=== PATIENT | male | born 1970 | race Caucasian/White ===

== ENCOUNTER 2020-07-28 15:19 | Emergency (ER) | payer OTHER, SELFPAY ==
[2020-07-28 15:21] VITALS: BP 140/96; PULSE 89; RESP 16; TEMP 36.6; O2SAT 98; BMI 25.9
--- NOTE | 2020-07-28 15:30 | HMH.EDGENADL ---
ED Disposition Clinical Impression: Traumatic hematoma of groin Qualifiers: Encounter type: initial encounter Qualified Code(s): S30.1XXA - Contusion of abdominal wall, initial encounter Disposition: Home, Self-Care Condition on Discharge: Good Instructions: DI for Hematoma (Bruise) Additional Instructions: Ice 20 minutes 4-5 times a day for 2 days. [place] as needed for pain. Return to the emergency department if intolerable pain, severe swelling, difficulty urinating. Additional instructions for CONTROLLED SUBSTANCES: You have been prescribed a medication that is a controlled substance. Controlled substances include pain medications known as opiates and sedative nerve medications known as benzodiazepines. Tramadol, fioricet, and gabapentin are also controlled substances. Some common opiates include: Codeine (such as Tylenol #3) Hydrocodone (Vicodin, Lortab, Lorcet, [place]) Oxycodone (Percocet, Percodan, Oxycodone, Oxy IR) Some common benzodiazepines include: Diazepam (Valium) Lorazepam (Ativan) Alprazolam (Xanax) Clonazepam (Klonopin) Oxazepam (Serax) All of these controlled substances are highly addictive and frequently abused. Misuse can and frequently does lead to addiction as well as overdose and . Medication should be stored in a locked cabinet or other secure storage unit. Do not store the medication in a motor vehicle. Short term supplies, 3 days or less, are prescribed because of the highly addictive nature of the medication. Any of the controlled substance medication NOT taken should be disposed of properly and NOT SAVED. The recommended method of disposing of unused medications is: Place the medicines in a sealable plastic bag. If the medicine is a solid, crush it or add water to dissolve it. Add something undesirable (cat litter, coffee grounds, etc.) Dispose of sealed bag in household trash Do not flush or pour unused medicines down a sink or drain. Controlled substances should not be shared, given away or sold. Because of the addictive nature and frequent abuse, these medications are sometimes stolen. These medications should be kept in a safe place where they cannot be stolen. Do not keep them in your car or purse. Lost or stolen prescriptions for controlled substances WILL NOT BE REFILLED in this emergency department, regardless of whether a police report was filed. Prescriptions: Hydrocod/Acet 5/325 mg [[place] 5/325mg tablet] 1 tab PO Q6HP PRN #10 tab PRN Reason: Pain Transmission Status: Sent to [id number] Referrals: PCP,No [Primary Care Provider] - - Critical Care Critical Care Time: No Attestation: On 07/28/20, the high probability of a clinically significant, sudden or life threatening deterioration of the following system(s) required my full and direct attention, intervention and personal management. The time I documented below is in addition to time spent performing reported procedures but includes the following listed in this critical care notation. Medical Decision Making - Robert Inquiry Pt receiving controlled substance: Yes Robert was queried for this patient: Yes Risks and benefits of using a controlled substance: were discussed with pt by me Vital Signs: 07/28/20 15:21 07/28/20 15:42 07/28/20 16:21 Temperature 98 F Temperature Source Oral Pulse Rate [Radial] 89 96 H 90 Respiratory Rate 16 Blood Pressure [Right Arm] 140/96 H 138/88 164/95 H Blood Pressure Mean [Right Arm] 110 104 118 Blood Pressure Source [Right Arm] Automatic Cuff Automatic Cuff Blood Pressure Position [Right Arm] Sitting Sitting Sitting 02 Sat by Pulse Oximetry 98 96 99 Oxygen Delivery Method Room Air Room Air Room Air 07/28/20 16:30 Temperature Temperature Source Pulse Rate [Radial] 88 Respiratory Rate 18 Blood Pressure [Right Arm] 164/95 H Blood Pressure Mean [Right Arm] 118 Blood Pressure Source [Right Arm] Blood Pressure Position [Right Arm]
--- NOTE | 2020-07-28 15:41 | CT_ITS ---
PROCEDURE: CT ABDOMEN PELVIS W CON CLINICAL INDICATION: injury Blunt trauma with injury and pain, contusion/abrasion or hematoma following injury COMPARISON: No exams were available for comparison TECHNIQUE: IV Contrast: 75ML Isovue 370 Oral Contrast None Axial images obtained with sagittal and coronal reformats. All CT scans at the facility use one or more dose reduction, viz: automated exposure control, ma/kV adjustment per patient size (including targeted exams where dose is matched to indication, i.e. head), or iterative reconstruction technique. FINDINGS: There is minimal thickening of the pericardium anteriorly. Liver, spleen, adrenal glands, and pancreas have an unremarkable appearance. There parapelvic renal cyst. No renal calculi or ureteral calculi parent. No evidence of appendicitis. No intestinal obstruction or free air. There is colonic diverticulosis. No evidence of diverticulitis. Right inguinal soft tissue injury is present with contusion and hemorrhage in the subcutaneous tissues of the right groin and within the right inguinal canal. Edematous changes extend into the anterior medial aspect of the right hip. Possible injury to the right adductors. There are bilateral hydroceles. Curvilinear calcification is present inferior to the left pubic bone there are mild osteoarthritic changes of the hips with sub articular cystic changes. IMPRESSION: 1. Soft tissue injury in the right groin with edema and hemorrhage in the subcutaneous tissues extending into the right inguinal canal and possible contusion or strain of the adductor muscle group in the proximal medial thigh. 2. Small to moderate bilateral hydroceles. Consider ultrasound for testicular evaluation of clinically warranted. Dictated by: Drew Kumar MD 07/29/2020 08:40 Drew Kumar MD in [place] 07/29/2020 08:40
--- NOTE | 2020-07-28 15:41 | XR_ITS ---
PROCEDURE: XR PELVIS 1-2V CLINICAL INDICATION: injury Pain COMPARISON: No exams were available for comparison TECHNIQUE: XR Pelvis AP View FINDINGS: No fracture or dislocation is evident. Mild degenerative changes of the hips. No lytic or blastic change. IMPRESSION: No acute findings. Dictated by: Drew Kumar MD 07/29/2020 07:36 Drew Kumar MD in [place] 07/29/2020 07:36
[2020-07-28 15:42] VITALS: BP 138/88; PULSE 96; O2SAT 96
--- NOTE | 2020-07-28 15:42 | XR_ITS ---
PROCEDURE: XR CHEST 2V CLINICAL HISTORY: injury Pain COMPARISON: No exams were available for comparison FINDINGS: The cardiomediastinal silhouette and pulmonary vascularity are within normal limits. The lungs are clear without infiltrates, suspicious nodules, or pleural effusions. There old left-sided rib fractures and postsurgical changes of the left scapula. IMPRESSION: No acute findings. Dictated by: Drew Kumar MD 07/29/2020 07:35 Drew Kumar MD in [place] 07/29/2020 07:35
--- NOTE | 2020-07-28 15:49 | XR_ITS ---
PROCEDURE: XR ELBOW LT MIN 3V CLINICAL INDICATION: injury COMPARISON: No exams were available for comparison FINDINGS: No acute fracture or dislocation. No lytic or blastic change. There is normal mineralization. The joint spaces are well-preserved. No significant degenerative/arthritic changes. No erosive changes evident. Other findings:Pain there is a faint calcific density at the medial epicondylar region within the soft tissues and may represent sequela from an old injury. IMPRESSION: No acute findings. Dictated by: Drew Kumar MD 07/29/2020 07:33 Drew Kumar MD in [place] 07/29/2020 07:33
[2020-07-28 16:10] LABS: Basophils % 0.2 % (0.1-2.0); Eosinophils # 0.1 K/mm3 (0.0-0.4); Eosinophils % 0.4 % (0.1-12.0); Hematocrit 40.8 % (42.0-52.0); Hemoglobin 13.9 g/dL (14.1-18.0); Lymphocytes # 1.7 K/mm3 (0.7-4.5); Lymphocytes % 13.6 % (10-50); Mean Corpuscular Hemoglobin 30.2 pg (27.0-31.2); Mean Corpuscular Volume 88.7 fl (80-94); Mean Platelet Volume 7.5 fl (7.4-10.4); Monocytes # 0.7 K/mm3 (0.1-1.0); Monocytes % 5.6 % (1.7-9.3); Neutrophils # 10.1 K/mm3 (1.8-7.8); Neutrophils % 80.1 % (37.0-80.0); Platelet Count 299 K/mm3 (142-424); Red Blood Count 4.59 M/mm3 (4.60-6.20); Red Cell Distribution Width 13.8 % (11.5-17.5); White Blood Count 12.6 K/mm3 (4.8-10.8)
[2020-07-28 16:13] LABS: Chloride 103 mmol/L (98-107); Sodium 137 mmol/L (136-145)
[2020-07-28 16:14] LABS: Potassium 4.5 mmoL/L (3.5-5.1)
[2020-07-28 16:16] LABS: Blood Urea Nitrogen 18 mg/dl (9-20); Creatinine Clearance Estimated 85 mL/min (50-200); Estimated Glomerular Filt Rate 65 ml/min (>60); GFR (African American) 78 ML/MIN (>60)
[2020-07-28 16:17] LABS: Anion Gap 11.5 mEq/L (5-15); Calcium 9.3 mg/dl (8.4-10.2); Carbon Dioxide 27 mmol/L (22.0-30.0); Glucose 83 mg/dl (74-100)
[2020-07-28 16:21] VITALS: BP 164/95; PULSE 90; O2SAT 99
--- NOTE | 2020-07-28 16:24 | PC.NURSE ---
Pt returned from rad.
[2020-07-28 16:30] VITALS: BP 164/95; PULSE 88; RESP 18; O2SAT 98
[2020-07-28 17:00] VITALS: BP 152/85; PULSE 77; O2SAT 96
[2020-07-28 17:12] VITALS: BP 152/85; PULSE 88; RESP 18; TEMP 36.8; O2SAT 98
== END 2020-07-28 17:09 | disposition home or self-care (01) ==
PROVIDERS: Emergency Provider Emergency Medicine
DX: S30.1XXA Contusion of abdominal wall, initial encounter (principal); S50.02XA Contusion of left elbow, initial encounter; V80.010A Animal-rider injured by fall from or being thrown from horse in noncollision accident, initial encounter; Y92.71 Barn as the place of occurrence of the external cause; I10 Essential (primary) hypertension
CPT/HCPCS: 71046; 72170; 73080; 74177; 80048; 85025; 99283; Q9967

== ENCOUNTER 2020-07-30 15:59 | Emergency (ER) | payer OTHER, SELFPAY ==
[2020-07-30 16:01] VITALS: BP 141/91; PULSE 105; RESP 20; TEMP 37.2; O2SAT 96; BMI 25.9
--- NOTE | 2020-07-30 16:58 | PC.NURSE ---
pt refused ultrasound
--- NOTE | 2020-07-30 17:03 | HMH.EDGENADL ---
ED Disposition Clinical Impression: Traumatic hematoma of groin Qualifiers: Encounter type: subsequent encounter Qualified Code(s): S30.1XXD - Contusion of abdominal wall, subsequent encounter Disposition: Home, Self-Care Condition on Discharge: Good Instructions: DI for Acute Pain -- Adult Prescriptions: Oxycodone HCl/Acetaminophen [Percocet 7.5/325mg tablet] 1 tab PO QID PRN #10 tab PRN Reason: Muscle Pain Transmission Status: Sent to [id number] Referrals: PCP,No [Primary Care Provider] - - Critical Care Critical Care Time: No Attestation: On 07/30/20, the high probability of a clinically significant, sudden or life threatening deterioration of the following system(s) required my full and direct attention, intervention and personal management. The time I documented below is in addition to time spent performing reported procedures but includes the following listed in this critical care notation. Medical Decision Making - Medical Records Medical records reviewed: Yes: I reviewed the patient's medical records. - Robert Inquiry Pt receiving controlled substance: Yes Robert was queried for this patient: Yes Reference #:: [id number] Risks and benefits of using a controlled substance: were discussed with pt by me Vital Signs: 07/30/20 16:01 Temperature 98.9 F Temperature Source Oral Pulse Rate [Left Radial] 105 H Respiratory Rate 20 Blood Pressure [Right Arm] 141/91 H Blood Pressure Mean [Right Arm] 107 Blood Pressure Source [Right Arm] Automatic Cuff Blood Pressure Position [Right Arm] Sitting 02 Sat by Pulse Oximetry 96 Oxygen Delivery Method Room Air Orders (Tests/Meds): ED MEDICATIONS Discontinued Medications Generic Name Dose Route Start Last Admin Trade Name Freq PRN Reason Stop Dose Admin Hydrocodone Bitart/Acetaminophen 1 tab 07/30/20 16:43 07/30/20 16:52 Hydrocodone 10mg/Apap 325mg Tab PO 07/30/20 16:44 1 tab ONCE ONE Administration ORDERS Category Date Time Status US Testicular Stat Ultrasound 07/30/20 16:43 Ordered Medical Decision Narrative: 49-year-old male presenting with some right groin pain. The patient has significant strain of his right inguinal area. However the patient continues to ride horses. I did explain to the patient that he needs to rest his injury. He will be given additional short course of analgesics. He is to ice and elevate the injury. I would like to obtain scrotal ultrasound, however the patient is declining at this time. He states that he just wants to try and rest for the next few days. He will follow up with his PCP in 48 hours. Given strict return precautions. Verbalized understanding. General Adult HPI - General Chief complaint: PAIN Stated complaint: WC 07/28 horse step on back Time Seen by Provider: 07/30/20 16:05 Mode of Arrival: Ambulatory Limitations: No Limitations Description of Symptoms (Recalled from ER Triage Doc. by RN): Pt states that he was seen here Thursday after a horse kicked him. States he got pain medicine but it is not strong enough for his pain control - History of Present Illness HPI narrative: 49-year-old male presented to the emergency department with some groin pain. Patient was recently seen after a trauma over the weekend. The patient had a horse fall backwards onto him. He was pulled by the left leg in the saddle until he was able to free himself. The patient did have extensive swelling and bleeding in the area causing some pain. He was discharged with some analgesics and feeling better. However today the patient continues to endorse some pain in the area. He states that the pain medicine is not working. However the patient also admits that he has continued to ride horses today. He denies any new injuries. He is not having difficulty urinating or hematuria. Denies abdominal pain or vomiting. No chest pain or shortness of breath. No headache or change in vision. No fo
[2020-07-30 17:29] VITALS: BP 137/78; PULSE 78; RESP 16; TEMP 36.6; O2SAT 98
== END 2020-07-30 17:31 | disposition home or self-care (01) ==
PROVIDERS: Emergency Provider Emergency Medicine
DX: S30.1XXA Contusion of abdominal wall, initial encounter (principal); V80.010A Animal-rider injured by fall from or being thrown from horse in noncollision accident, initial encounter; Y92.89 Other specified places as the place of occurrence of the external cause
CPT/HCPCS: 99281

== ENCOUNTER 2021-02-25 15:48 | Emergency (ER) | payer SELFPAY ==
[2021-02-25 15:49] VITALS: BP 154/99; PULSE 92; RESP 16; TEMP 37.6; O2SAT 100; BMI 28.0
--- NOTE | 2021-02-25 16:25 | XR_ITS ---
PROCEDURE INFORMATION: Exam: XR Chest Exam date and time: 02/25/2021 4:25 PM Age: 50 years old Clinical indication: Pain; Chest pressure and on breathing; Additional info: SOA, cough, painful inspiration TECHNIQUE: Imaging protocol: XR of the chest. Views: 2 views. COMPARISON: CR XR CHEST 2V 07/28/2020 3:55 PM FINDINGS: Lungs: Faint left basilar opacity compatible with pneumonia Pleural spaces: Unremarkable. No pleural effusion. No pneumothorax. Heart/Mediastinum: Unremarkable. No cardiomegaly. Bones/joints: Unremarkable. IMPRESSION: Faint left basilar opacity compatible with pneumonia
[2021-02-25 16:31] VITALS: BP 136/96; PULSE 94; O2SAT 98
[2021-02-25 16:37] LABS: Influenza A, PCR Not Detected (NotDetected); Influenza B, PCR Not Detected (NotDetected)
[2021-02-25 16:45] LABS: Basophils % 0.5 % (0.1-2.0); Eosinophils % 0.1 % (0.1-12.0); Hematocrit 43.6 % (42.0-52.0); Hemoglobin 14.7 g/dL (14.1-18.0); Lymphocytes # 0.6 K/mm3 (0.7-4.5); Lymphocytes % 13.2 % (10-50); Mean Corpuscular HGB Conc 33.7 g/dL (31.8-35.4); Mean Corpuscular Hemoglobin 30.7 pg (27.0-31.2); Mean Corpuscular Volume 91.1 fl (80-94); Monocytes # 0.1 K/mm3 (0.1-1.0); Monocytes % 3.1 % (1.7-9.3); Neutrophils # 3.7 K/mm3 (1.8-7.8); Neutrophils % 82.9 % (37.0-80.0); Platelet Count 198 K/mm3 (142-424); Red Blood Count 4.79 M/mm3 (4.60-6.20); Red Cell Distribution Width 13.1 % (11.5-17.5); White Blood Count 4.4 K/mm3 (4.8-10.8)
[2021-02-25 16:46] LABS: Alanine Aminotransferase 103 U/L (12-78); Albumin Level 4.2 g/dl (3.5-5.0); Albumin/Globulin Ratio 1.3 (1.1-1.8); Alkaline Phosphatase 86 U/L (38-126); Anion Gap 12.1 mEq/L (5-15); Aspartate Amino Transferase 84 U/L (17-59); Bilirubin,Total 0.3 mg/dl (0.2-1.3); Blood Urea Nitrogen 13 mg/dl (9-20); Calcium 8.8 mg/dl (8.4-10.2); Carbon Dioxide 27 mmol/L (22.0-30.0); Chloride 101 mmol/L (98-107); Creatinine Clearance Estimated 109 mL/min (50-200); Estimated Glomerular Filt Rate 79 ml/min (>60); GFR (African American) 96 ML/MIN (>60); Globulin 3.2 g/dL (1.3-3.2); Glucose 80 mg/dl (74-100); Potassium 4.1 mmoL/L (3.5-5.1); Sodium 136 mmol/L (136-145); Total Protein,Serum 7.4 g/dl (6.3-8.2)
[2021-02-25 17:00] VITALS: BP 143/93; PULSE 91; O2SAT 99
[2021-02-25 17:19] LABS: Coronavirus 19, PCR Detected (NotDetected)
--- NOTE | 2021-02-25 17:36 | HMH.EDGENADL ---
ED Disposition Clinical Impression: COVID-19 Disposition: Home, Self-Care Condition on Discharge: Good Additional Instructions: Self isolate. Tylenol/Motrin as needed for aches and pains. Continue prescribed medications as directed. Return for shortness of breath, chest pain Referrals: Provider,Referral, [Primary Care Provider] - 3 days Time of Disposition: 17:39 - Critical Care Critical Care Time: No Attestation: On 02/25/21, the high probability of a clinically significant, sudden or life threatening deterioration of the following system(s) required my full and direct attention, intervention and personal management. The time I documented below is in addition to time spent performing reported procedures but includes the following listed in this critical care notation. Medical Decision Making - Medical Records Medical records reviewed: Yes: I reviewed the patient's medical records. - Robert Inquiry Pt receiving controlled substance: No Vital Signs: 02/25/21 15:49 Temperature 99.6 F Temperature Source Oral Pulse Rate [Right Radial] 92 H Respiratory Rate 16 Blood Pressure [Right Arm] 154/99 H Blood Pressure Mean [Right Arm] 117 Blood Pressure Source [Right Arm] Automatic Cuff Blood Pressure Position [Right Arm] Sitting 02 Sat by Pulse Oximetry 100 Oxygen Delivery Method Room Air - Lab Data Lab results reviewed: Yes: I reviewed the patient's lab results. Lab Results 02/25/21 16:20: WBC 4.4 L, RBC 4.79, Hgb 14.7, Hct 43.6, MCV 91.1, MCH 30.7, MCHC 33.7, RDW 13.1, Plt Count 198, MPV 8.0, Neut % (Auto) 82.9 H, Lymph % (Auto) 13.2, Williams % (Auto) 3.1, Eos % (Auto) 0.1, Baso % (Auto) 0.5, Neut # (Auto) 3.7, Lymph # (Auto) 0.6 L, Williams # (Auto) 0.1, Eos # (Auto) 0.0, Baso # (Auto) 0.0 02/25/21 16:20: Sodium 136, Potassium 4.1, Chloride 101, Carbon Dioxide 27, Anion Gap 12.1, BUN 13, Creatinine 1.00, Estimated Creat Clear 109, Estimated GFR 79, Est GFR ( Amer) 96, Glucose 80, Calcium 8.8, Total Bilirubin 0.3, AST 84 H, ALT 103 H, Alkaline Phosphatase 86, Total Protein 7.4, Albumin 4.2, Globulin 3.2, Albumin/Globulin Ratio 1.3 02/25/21 16:20: SARS-CoV-2 (PCR) Detected A, Influenza A Untype (PCR) Not detected, Influenza Type B (PCR) Not detected Result diagrams: 02/25/21 16:20 02/25/21 16:20 - Radiology Data #1 Image(s): Chest Image Reviewed: Yes I reviewed the patient's radiology results Preliminary Findings: Abnormal Possible early Covid pneumonia Medical Decision Narrative: 50yo M evaluated for cough and shortness of breath. Patient no acute distress upon initial presentation to emergency department. He ambulates without difficulty and speaks in full sentences. He is in quite good spirits. Routine work-up is initiated and the patient is Covid positive. Chest x-ray concerning for possible early Covid pneumonia. White blood cell count is 4.4. His O2 saturation is 99% on room air. Patient is appropriate stable for discharge home. Instructed to self isolate. General Adult HPI - General Chief complaint: Shortness of Breath/Dyspnea Stated complaint: breathing issue Time Seen by Provider: 02/25/21 17:36 Mode of Arrival: Ambulatory Limitations: No Limitations Description of Symptoms (Recalled from ER Triage Doc. by RN): Pt c/o SOA and productive cough for a few days . Pt states that its painful to take a deep breath. - History of Present Illness HPI narrative: 50yo M presents the emergency department for a cough and sensation of shortness of breath. Symptoms been ongoing for about 7 days. Reports fever prior to that but no fever since. States he has lost his sense of smell. He also reports loose stools. Denies any chest pain. Patient reports taking his home medication as directed. Patient does not smoke. No known sick exposures. - Related Data Home Medications Medication Instructions Recorded Confirmed hydrOXYzine HCL [Hydroxyzine HCl] 25 mg PO TID 07/28/20 07/28/20 l
[2021-02-25 17:40] VITALS: BP 130/93; PULSE 91; RESP 18; TEMP 37.6; O2SAT 97
[2021-02-25 17:42] VITALS: BP 130/93; PULSE 91; O2SAT 97
== END 2021-02-25 17:45 | disposition home or self-care (01) ==
PROVIDERS: Emergency Provider Family Medicine
DX: U07.1 COVID-19 (principal)
CPT/HCPCS: 71046; 80053; 85025; 99283; C9803; U0003; U0005

== ENCOUNTER → 2021-09-17 16:00 | Outpatient (CLI) | payer OTHER, SELFPAY ==
[2021-09-17 20:16] LABS: Erythrocyte Sedimentation Rate 6 mm/hr (0-15)
[2021-09-19 08:21] LABS: Testosterone,Total 127 ng/dL (264-916)
== END ==
PROVIDERS: Visit Provider Emergency Medicine
DX: S30.1XXA Contusion of abdominal wall, initial encounter (principal)
CPT/HCPCS: 84403; 85651; 86140

== ENCOUNTER 2021-10-17 13:38 | Emergency (ER) | payer OTHER, SELFPAY ==
--- NOTE | 2021-10-17 13:53 | XR_ITS ---
FINAL REPORT CLINICAL HISTORY: cough, weakness COMPARISON: February 25, 2021 FINDINGS: PA and lateral views of the chest were obtained. The cardiac and mediastinal silhouettes are within normal limits. There is subtle peripheral opacity in the right lung. There is no pleural effusion or pneumothorax. There is an old left scapular fracture. There are old left rib fractures. IMPRESSION: Subtle peripheral opacity in the right lung. Pneumonia cannot be excluded. Reviewed, Interpreted and Dictated by Alexa Gallegos MD Transcribed by Dread Scott Authenticated by Alexa Gallegos MD on 10/17/2021 02:53:50 PM [facility]
[2021-10-17 14:00] VITALS: BP 144/91; PULSE 99; RESP 18; TEMP 36.6; O2SAT 97; BMI 27.3
--- NOTE | 2021-10-17 14:15 | HMH.EDUTC ---
[facility] [place] Disposition Clinical Impression: Sinusitis Qualifiers: Sinusitis location: unspecified location Chronicity: acute Recurrence: non-recurrent Qualified Code(s): J01.90 - Acute sinusitis, unspecified Fatigue Qualifiers: Fatigue type: unspecified Qualified Code(s): R53.83 - Other fatigue Disposition: Home, Self-Care Condition on Discharge: Good Instructions: DI for Sinusitis, DI for Fatigue Additional Instructions: Drink plenty of fluids. Take tylenol or ibuprofen for pain or fever. Take the medications as directed. Follow up with your regular doctor. GO TO THE ER FOR ANY WORSENING SYMPTOMS Don't start the oral steroids until tomorrow, since you had the shot here today. Prescriptions: methylPREDNISolone [Medrol] 4 mg PO DIRECTED 6 Days #21 packet Transmission Status: Received by [facility] Azithromycin [Z-Michael 250mg Tab*] 250 mg PO UD DOSE PK #6 tab Transmission Status: Received by [facility] Referrals: Santino Cruz MD [Primary Care Provider] - Time of Disposition: 14:52 Medical Decision Making - Medical Records Medical records reviewed: No: I reviewed the patient's medical records. - Robert Inquiry Pt receiving controlled substance: No Vital Signs: 10/17/21 14:00 10/17/21 14:55 Temperature 97.9 F 97.9 F Temperature Source Oral Pulse Rate 99 H Pulse Rate [Left Radial] 99 H Respiratory Rate 18 18 Blood Pressure 144/91 H Blood Pressure [Right Arm] 144/91 H Blood Pressure Mean [Right Arm] 108 02 Sat by Pulse Oximetry 97 Orders (Tests/Meds): ED MEDICATIONS Discontinued Medications Generic Name Dose Route Start Last Admin Trade Name Pola PRN Reason Stop Dose Admin Ceftriaxone Sodium 1 gm 10/17/21 14:32 10/17/21 14:48 Ceftriaxone 1gm Vial IM 10/17/21 14:33 1 gm ONCE ONE Administration Lidocaine HCl 0 ml 10/17/21 14:32 10/17/21 14:48 Lidocaine 1% 5ml Pf Vial IM 10/17/21 14:33 2 ml ONCE ONE Administration Methylprednisolone Sodium Succinate 125 mg 10/17/21 14:32 10/17/21 14:48 Methylprednisolone Sod Succ 125mg Vial IM 10/17/21 14:33 125 mg ONCE ONE Administration ORDERS Category Date Time Status Covid-19 Nasal PCR ([facility]) Routine Lab 10/17/21 13:51 Received Upper Respiratory Panel, PCR Stat Lab 10/17/21 13:51 Received - Radiology Data #1 Image(s): Chest Image Reviewed: Yes I reviewed the patient's radiology image, Yes I have reviewed radiologist's interpretation Preliminary Findings: Abnormal FINAL REPORT CLINICAL HISTORY: cough, weakness COMPARISON: February 25, 2021 FINDINGS: PA and lateral views of the chest were obtained. The cardiac and mediastinal silhouettes are within normal limits. There is subtle peripheral opacity in the right lung. There is no pleural effusion or pneumothorax. There is an old left scapular fracture. There are old left rib fractures. IMPRESSION: Subtle peripheral opacity in the right lung. Pneumonia cannot be excluded. Reviewed, Interpreted and Dictated by Alexa Gallegos MD Transcribed by Dread Scott Authenticated by Alexa Gallegos MD on 10/17/2021 02:53:[address] [facility] HPI - General Stated complaint: sweats, weakness Time Seen by Provider: 10/17/21 14:00 Mode of Arrival: Ambulatory Source of Information: Patient Limitations: No Limitations Description of Symptoms (Recalled from Triage Doc. by RN): pt here for weakness, cold sweats, heat bothering him. pt also c/o phlegm that he can not get rid of HEENT Symptoms (Recalled from RN notes): No Resp Symptoms (Recalled from RN notes): Yes Skin Symptoms (Recalled from RN notes): No MS Symptoms (Recalled from RN notes): No Functional Status (Recalled from RN notes): wnl - History of Present Illness Provider Complaint: He states that he has been having night sweats, low grade fever at times, feeling bad and a cough. - Related Data Home Medications Medic
[2021-10-17 14:40] LABS: Adenovirus,PCR Not Detected (NotDetected); Bordetella Pertussis Not Detected (NotDetected); Chlamydophila Pneumoniae, PCR Not Detected (NotDetected); Coronavirus 229E Not Detected (NotDetected); Coronavirus NL63 Not Detected (NotDetected); Coronavirus OC43 Not Detected (NotDetected); Coronovirus HKU1,PCR Not Detected (NotDetected); Human Metapneumovirus Not Detected (NotDetected); Influenza A, PCR Not Detected (NotDetected); Influenza AH1, 2009 Not Detected (NotDetected); Influenza AH1, PCR Not Detected (NotDetected); Influenza AH3,PCR Not Detected (NotDetected); Influenza B, PCR Not Detected (NotDetected); Mycoplasma Pneumoniae, PCR Not Detected (NotDetected); Parainfluenza 1, PCR Not Detected (NotDetected); Parainfluenza 2, PCR Not Detected (NotDetected); Parainfluenza 3, PCR Not Detected (NotDetected); Parainfluenza 4, PCR Not Detected (NotDetected); Respiratory Syncytial Virus Not Detected (NotDetected); Rhinovirus/Enterovirus Not Detected (NotDetected)
[2021-10-17 14:55] VITALS: BP 144/91; PULSE 99; RESP 18; TEMP 36.6
== END 2021-10-17 14:58 | disposition home or self-care (01) ==
PROVIDERS: Emergency Provider Nurse Practitioner Family; PCP Emergency Medicine
DX: J01.90 Acute sinusitis, unspecified (principal); R53.82 Chronic fatigue, unspecified; R53.1 Weakness; R61 Generalized hyperhidrosis; R50.9 Fever, unspecified; I10 Essential (primary) hypertension; Z20.822 Contact with and (suspected) exposure to COVID-19; Z79.52 Long term (current) use of systemic steroids; Z79.899 Other long term (current) drug therapy
CPT/HCPCS: 71046; 87486; 87581; 87632; 87798; 96372; 99213; C9803; G0463; J0696; U0003; U0005

== ENCOUNTER 2021-11-18 17:09 | Emergency (ER) | payer OTHER, SELFPAY ==
[2021-11-18 17:57] VITALS: BP 142/92; PULSE 94; RESP 18; TEMP 37.1; O2SAT 97; BMI 27.0
--- NOTE | 2021-11-18 17:57 | HMH.EDUTC ---
[facility] [place] Clinical Impression: Bronchitis Sinusitis Qualifiers: Sinusitis location: frontal Chronicity: acute Recurrence: non-recurrent Qualified Code(s): J01.10 - Acute frontal sinusitis, unspecified Fatigue Qualifiers: Fatigue type: unspecified Qualified Code(s): R53.83 - Other fatigue Disposition: Home, Self-Care Condition on Discharge: Good Instructions: DI for Sinusitis, DI for Acute Bronchitis Additional Instructions: Drink plenty of fluids. Take tylenol or ibuprofen for pain or fever. Take the medications as directed. Follow up with your regular doctor. GO TO THE ER FOR ANY WORSENING SYMPTOMS Don't start the oral steroids until tomorrow, since you had the shot here today. Prescriptions: Fluticasone Propionate [Flonase 50mcg nasal spray 16gm] 1 spr NS DAILY 30 Days #16 gm Transmission Status: Received by [facility] methylPREDNISolone [Medrol] 4 mg PO DIRECTED 6 Days #21 packet Transmission Status: Received by [facility] Cetirizine HCl [Zyrtec] 10 mg PO DAILY 30 Days #30 cap Transmission Status: Received by [facility] Referrals: Santino Cruz MD [Primary Care Provider] - Time of Disposition: 19:14 Medical Decision Making - Medical Records Medical records reviewed: No: I reviewed the patient's medical records. - Robert Inquiry Pt receiving controlled substance: No Vital Signs: 11/18/21 17:57 11/18/21 19:24 Temperature 98.7 F 98.7 F Temperature Source Oral Pulse Rate 66 Pulse Rate [Left] 94 H Respiratory Rate 18 18 Blood Pressure 164/86 H Blood Pressure [Right Arm] 142/92 H Blood Pressure Mean [Right Arm] 108 02 Sat by Pulse Oximetry 97 Orders (Tests/Meds): ED MEDICATIONS Discontinued Medications Generic Name Dose Route Start Last Admin Trade Name Freq PRN Reason Stop Dose Admin Ceftriaxone Sodium 1 gm 11/18/21 18:59 11/18/21 19:13 Ceftriaxone 1gm Vial IM 11/18/21 19:00 1 gm ONCE ONE Administration Cyanocobalamin 1,000 mcg 11/18/21 19:13 11/18/21 19:23 Vitamin B-12 1,000 Mcg 1ml Vial IM 11/18/21 19:14 Not Given ONCE ONE Lidocaine HCl 0 ml 11/18/21 18:59 11/18/21 19:13 Lidocaine 1% 5ml Pf Vial IM 11/18/21 19:00 2 ml ONCE ONE Administration Methylprednisolone Sodium Succinate 125 mg 11/18/21 18:59 11/18/21 19:14 Methylprednisolone Sod Succ 125mg Vial IM 11/18/21 19:00 125 mg ONCE ONE Administration - Radiology Data #1 Image(s): Chest Image Reviewed: Yes I reviewed the patient's radiology image, Yes I have reviewed radiologist's interpretation Preliminary Findings: Normal/NAD, No Infiltrates Seen PROCEDURE INFORMATION: Exam: XR Chest Exam date and time: 11/18/2021 6:43 PM Age: 51 years old Clinical indication: Patient HX: PT states that he has covid back in March 14 and that he has had an on and of cough and flehm build up ever since. TECHNIQUE: Imaging protocol: Radiologic exam of the chest. Views: 2 views. COMPARISON: CR XR CHEST 2V 10/17/2021 1:50 PM FINDINGS: Lungs: Unremarkable. No consolidation. Pleural spaces: Unremarkable. No pleural effusion. No pneumothorax. Heart/Mediastinum: Unremarkable. No cardiomegaly. Bones/joints: Postsurgical changes of the left shoulder. Old left rib fractures. IMPRESSION: No acute findings. [facility] [place] - General Stated complaint: cough and congestion Time Seen by Provider: 11/18/21 17:58 - History of Present Illness Provider Complaint: He states that for the past 4 days he has had worsening sinus and chest congestion. He has a nonproductice cough. He has had chilling and low grade fever also. - Related Data Home Medications Medication Instructions Recorded Confirmed atorvastatin 20 mg tablet 20 mg PO HS 09/17/21 11/14/21 chlorthalidone 25 mg tablet 25 mg PO DAILY 09/17/21 11/14/21 fluoxetine 20
--- NOTE | 2021-11-18 18:31 | XR_ITS ---
PROCEDURE INFORMATION: Exam: XR Chest Exam date and time: 11/18/2021 6:43 PM Age: 51 years old Clinical indication: Patient HX: PT states that he has covid back in March 14 and that he has had an on and of cough and flehm build up ever since. TECHNIQUE: Imaging protocol: Radiologic exam of the chest. Views: 2 views. COMPARISON: CR XR CHEST 2V 10/17/2021 1:50 PM FINDINGS: Lungs: Unremarkable. No consolidation. Pleural spaces: Unremarkable. No pleural effusion. No pneumothorax. Heart/Mediastinum: Unremarkable. No cardiomegaly. Bones/joints: Postsurgical changes of the left shoulder. Old left rib fractures. IMPRESSION: No acute findings.
[2021-11-18 19:24] VITALS: BP 164/86; PULSE 66; RESP 18; TEMP 37.1
== END 2021-11-18 19:41 | disposition home or self-care (01) ==
PROVIDERS: Emergency Provider Nurse Practitioner Family; PCP Emergency Medicine
DX: J01.10 Acute frontal sinusitis, unspecified (principal); J40 Bronchitis, not specified as acute or chronic
CPT/HCPCS: 71046; 96372; 99212; G0463; J0696

== ENCOUNTER 2022-04-04 11:24 | Emergency (ER) | payer OTHER, SELFPAY ==
[2022-04-04 12:45] VITALS: BP 123/81; PULSE 91; RESP 18; TEMP 36.7; O2SAT 98; BMI 29.6
[2022-04-04 13:21] LABS: UTC Strep Screen (Rapid) Negative (Negative)
[2022-04-04 13:21] LABS: UTC Influenza A Antigen Negative (Negative); UTC Influenza B Antigen Negative (Negative)
--- NOTE | 2022-04-04 13:21 | EXP.UTC ---
Discharge Plan Disposition Patient Disposition: Home, Self-Care Condition: Good Prescriptions Prescriptions: New benzonatate 100 mg capsule 100 mg PO TID PRN (Reason: cough) Qty: 30 0RF methylprednisolone [Medrol (Michael)] 4 mg tablets,dose pack See Rx Instructions .Route .COMPLEX 6 Days Qty: 21 0RF Rx Instructions: taper pack; amoxicillin-pot clavulanate 875-125 mg Tablet 1 tab PO Q12H Qty: 20 0RF No Action escitalopram oxalate 10 mg tablet 10 mg PO cephalexin 500 mg capsule 500 mg PO TID Qty: 21 0RF chlorthalidone 25 mg tablet 25 mg PO DAILY lisinopril 20 mg tablet 20 mg PO DAILY atorvastatin 20 mg tablet 20 mg PO HS fluticasone propionate 120 SPR/BOT bottle 1 spr NS DAILY 30 Days Qty: 16 0RF cetirizine 10 MG capsule 10 mg PO DAILY 30 Days Qty: 30 5RF Referrals Follow up/Referrals: Santino Cruz MD [Primary Care Provider] - See instructions Clinical Impressions Clinical Impression: Sinusitis Stand Alone Forms Stand Alone Forms: Work/School Release Instructions Patient Instructions: Sinusitis, DI for Sinusitis Discharge ED Provider: Nimo Villalobos [facility] General Stated complaint: Sore throat Mode of Arrival: Ambulatory Source of Information: Patient Limitations: No Limitations Time Seen by Provider: 04/04/22 13:21 Description of Symptoms (Recalled from Triage Doc. by RN): PATIENT C/O COUGH, CONGESTION, DIARRHEA AND NAUSEA X 2 WEEKS HEENT Symptoms (Recalled from RN notes): Yes Resp Symptoms (Recalled from RN notes): Yes Skin Symptoms (Recalled from RN notes): No MS Symptoms (Recalled from RN notes): No Functional Status (Recalled from RN notes): WNL History of Present Illness Provider Complaint: Patient states that for the last couple of week he has been having thick discharge from his nose States that when he wakes up it is making him cough States that he has pressure behind his eyes States that he feels like it is getting worse States that when he blows his nose it is thick and draining in the back of his throat States that he thinks swallowing that mucous give him diarrhea on and off so today he came in to get checked Related Data Home Medications Medication Instructions Recorded Confirmed atorvastatin 20 mg tablet 20 mg PO HS 09/17/21 03/10/22 chlorthalidone 25 mg tablet 25 mg PO DAILY 09/17/21 03/10/22 lisinopril 20 mg tablet 20 mg PO DAILY 09/17/21 03/10/22 escitalopram oxalate 10 mg tablet 10 mg PO 02/21/22 03/10/22 Previous Rx's Medication Instructions Recorded cetirizine 10 mg capsule 10 mg PO DAILY 30 days #30 caps 11/18/21 fluticasone propionate 50 1 spr intranasal DAILY 30 days #16 11/18/21 mcg/actuation nasal grams spray,suspension cephalexin 500 mg capsule 500 mg PO TID #21 caps 03/10/22 amoxicillin 875 mg-potassium 1 tab PO Q12H #20 tabs 04/04/22 clavulanate 125 mg tablet benzonatate 100 mg capsule 100 mg PO TID PRN cough #30 caps 04/04/22 methylprednisolone 4 mg tablets in See Rx Instructions .Route 04/04/22 a dose pack (Medrol (Michael)) .COMPLEX 6 days #21 tabs Allergies Allergy/AdvReac Type Severity Reaction Status Date / Time No Known Allergies Allergy Verified 03/10/22 11:15 Worker's Comp Is this a Worker's Comp case?: No PFSH [facility] Medical History (Updated 04/04/22 @ 13:41 by Nimo Villalobos APRN) Hyperlipidemia Hypertension Social History (Updated 04/04/22 @ 12:59 by Bre Miller RN) Smoking Status: Never smoker alcohol intake: current substance use type: denies use current occupational status: employed Travel in the last 8 weeks: None ROS Obtained: Yes All systems reviewed & no additional complaints except as documented and Yes Systems reviewed as appropriate & no additional complaints except as documented Constitutional Constitutional: Reports system reviewed and no additional complaints, except as documented, Reports as per HPI and Reports headache
[2022-04-04 13:46] VITALS: BP 123/81; PULSE 91; RESP 18; TEMP 36.7; O2SAT 98
== END 2022-04-04 13:54 | disposition home or self-care (01) ==
PROVIDERS: Emergency Provider Nurse Practitioner; PCP Emergency Medicine
DX: J32.9 Chronic sinusitis, unspecified (principal)
CPT/HCPCS: 87804; 87880; 99212; G0463

== ENCOUNTER → 2022-04-21 13:53 | Outpatient (CLI) | payer OTHER, SELFPAY ==
[2022-04-21 18:26] LABS: Basophils # 0.1 K/mm3 (0-0.2); Basophils % 0.9 % (0.1-2.0); Eosinophils # 0.1 K/mm3 (0.0-0.4); Eosinophils % 1.4 % (0.1-12.0); Hematocrit 43.3 % (42.0-52.0); Hemoglobin 14.6 g/dL (14.1-18.0); Lymphocytes % 23.3 % (10-50); Mean Corpuscular HGB Conc 33.7 g/dL (31.8-35.4); Mean Corpuscular Hemoglobin 31.2 pg (27.0-31.2); Mean Corpuscular Volume 92.4 fl (80-94); Mean Platelet Volume 8.8 fl (7.4-10.4); Monocytes # 0.6 K/mm3 (0.1-1.0); Monocytes % 7.1 % (1.7-9.3); Neutrophils # 5.7 K/mm3 (1.8-7.8); Neutrophils % 67.2 % (37.0-80.0); Platelet Count 345 K/mm3 (142-424); Red Blood Count 4.69 M/mm3 (4.60-6.20); Red Cell Distribution Width 13.3 % (11.5-17.5); White Blood Count 8.5 K/mm3 (4.8-10.8)
[2022-04-21 18:32] LABS: Alanine Aminotransferase 144 U/L (12-78); Albumin Level 4.8 g/dl (3.5-5.0); Albumin/Globulin Ratio 1.7 (1.1-1.8); Alkaline Phosphatase 176 U/L (38-126); Anion Gap 20.6 mEq/L (5-15); Aspartate Amino Transferase 95 U/L (17-59); Bilirubin,Total 0.4 mg/dl (0.2-1.3); Blood Urea Nitrogen 25 mg/dl (9-20); Calcium 10.2 mg/dl (8.4-10.2); Carbon Dioxide 28 mmol/L (22.0-30.0); Chloride 93 mmol/L (98-107); Chol/HDL Ratio 7.7 (1-3.5); Cholesterol 193 mg/dl (140-200); Estimated Glomerular Filt Rate 71 ml/min (>60); GFR (African American) 86 ML/MIN (>60); Globulin 2.8 g/dL (1.3-3.2); Glucose 96 mg/dl (74-100); HDL Cholesterol 25 mg/dl (40-60); Potassium 3.6 mmoL/L (3.5-5.1); Sodium 138 mmol/L (136-145); Total Protein,Serum 7.6 g/dl (6.3-8.2)
[2022-04-21 18:39] LABS: Triglycerides 1435 mg/dl (30-150)
[2022-04-21 18:48] LABS: Direct LDL Cholesterol < 30.00 mg/dL (100-129)
[2022-04-21 18:50] LABS: Free T4 (Free Thyroxine) 0.68 ng/dl (0.78-2.19)
[2022-04-21 18:51] LABS: 25-OH Vitamin D, Total 21.6 ng/mL (30-100)
[2022-04-21 19:03] LABS: Prostate Specific Ag Screen 0.4 ng/ml (0.0-4.0); Thyroid Stimulating Hormone 1.39 uIU/mL (0.465-4.68)
== END ==
PROVIDERS: PCP Emergency Medicine; Visit Provider Emergency Medicine
DX: Z00.00 Encounter for general adult medical examination without abnormal findings (principal); R53.83 Other fatigue; E55.9 Vitamin D deficiency, unspecified; Z79.899 Other long term (current) drug therapy; Z12.5 Encounter for screening for malignant neoplasm of prostate
CPT/HCPCS: 80053; 80061; 82306; 84439; 84443; 85025; G0103

== ENCOUNTER → 2022-05-15 08:35 | Outpatient (CLI) | payer OTHER, SELFPAY ==
--- NOTE | 2022-05-15 08:35 | US_ITS ---
FINAL REPORT CLINICAL HISTORY: abdominal pain FINDINGS: Sonographic images of the right upper quadrant were obtained. The pancreas is partially obscured. There is fatty infiltration of the liver. The gallbladder appears normal without evidence of gallstones.There is no evidence of biliary ductal dilatation.The common duct measures 3 mm. Limited images of the right kidney are unremarkable. IMPRESSION: Fatty liver. Reviewed, Interpreted and Dictated by Humble Estrada III, MD Transcribed by Nicole Eaton Authenticated and [facility]
== END ==
PROVIDERS: PCP Emergency Medicine; Visit Provider Emergency Medicine
DX: R10.9 Unspecified abdominal pain (principal)
CPT/HCPCS: 76705

== ENCOUNTER 2022-11-06 18:36 | Emergency (ER) | payer OTHER, SELFPAY ==
[2022-11-06 18:45] VITALS: BP 141/90; PULSE 91; RESP 18; TEMP 36.8; O2SAT 98; BMI 28.5
--- NOTE | 2022-11-06 18:56 | EXP.UTC ---
Discharge Plan Disposition Patient Disposition: Home, Self-Care Condition: Good Prescriptions Prescriptions: New fluticasone propionate [Flonase Allergy Relief] 50 mcg/actuation spray,suspension 1 - 2 spray intranasal DAILY Qty: 16 0RF Rx Instructions: administer into each nostril daily No Action escitalopram oxalate 10 mg tablet 10 mg PO dicyclomine 20 mg tablet 20 mg PO BID Qty: 20 0RF chlorthalidone 25 mg tablet 25 mg PO DAILY lisinopril 20 mg tablet 20 mg PO DAILY atorvastatin 20 mg tablet 20 mg PO HS omeprazole 20 mg capsule,delayed release(DR/EC) 40 mg PO DAILY 30 Days Qty: 60 2RF famotidine [Acid Seam Presser (famotidine)] 20 mg tablet 40 mg PO HS Qty: 90 3RF cholecalciferol (vitamin D3) 50 mcg (2,000 unit) capsule 50 mcg PO DAILY Qty: 90 2RF cholecalciferol (vitamin D3) 1,250 mcg (50,000 unit) capsule 1,250 mcg PO WEEKLY Qty: 14 3RF fluticasone propionate 120 SPR/BOT bottle 1 spr NS DAILY 30 Days Qty: 16 0RF cetirizine 10 MG capsule 10 mg PO DAILY 30 Days Qty: 30 5RF Referrals Follow up/Referrals: Santino Cruz MD [Primary Care Provider] - See instructions Activity Restrictions/Add. Instructions Additional Instructions/Restrictions: *Monitor Temp, Over the counter Motrin or Tylenol as directed/as needed Tylenol every 4 hours and Motrin every 6 hours (as long as your family doctor has told you that you can take it) for fever or pain. and straight to ER if unable to lower temp less than 101.0 after medication given *Warm salt water gargles may help to soothe the throat *Throat Lozenges? *Warm fluids like tea with honey may help to soothe the throat? *Sleep elevated *Humidifier/Vaporizer *Flonase 2 sprays in each nostril daily but be aware that it may take 2-3 days before you notice improvement Your throat swab was sent for culture. Those results are typically sent to your primary care. Be sure to follow up in 2-3 days with your family doctor/primary care physician if no improvement so they can review those result and treat if necessary. If you don?t have a primary care doctor, I recommend you get one but in the mean time, you will have to return to a walk in clinic Follow up IMMEDIATELY for new or worsening symptoms or no Noticeable improvement over the next 48-72 hours. 911 for difficulty breathing or swallowing Saline spray in the nose may help with some nasal congestion Clinical Impressions Clinical Impression: URI (upper respiratory infection) Qualifiers: URI type: unspecified URI Qualified Code(s): J06.9 - Acute upper respiratory infection, unspecified Instructions Patient Instructions: DI for Nasal Congestion Discharge ED Provider: Nimo Villalobos [facility] General Stated complaint: sore throat Mode of Arrival: Ambulatory Source of Information: Patient Limitations: No Limitations Time Seen by Provider: 11/06/22 18:57 Description of Symptoms (Recalled from Triage Doc. by RN): PATIENT C/O SORE THROAT X 8 DAYS HEENT Symptoms (Recalled from RN notes): Yes Resp Symptoms (Recalled from RN notes): No Skin Symptoms (Recalled from RN notes): No MS Symptoms (Recalled from RN notes): No Functional Status (Recalled from RN notes): WNL History of Present Illness Provider Complaint: Patient states that he has been having sore throat, sinus congestion and drainage in his throat and making him cough for the last 8 days States that today it was bothering him so he came in to get it checked to see if he could get something to help Related Data Home Medications Medication Instructions Recorded Confirmed atorvastatin 20 mg tablet 20 mg PO HS 09/17/21 07/15/22 chlorthalidone 25 mg tablet 25 mg PO DAILY 09/17/21 07/15/22 lisinopril 20 mg tablet 20 mg PO DAILY 09/17/21 07/15/22 escitalopram oxalate 10 mg tablet 10 mg PO 02/21/22 07/15/22 Previous Rx's Medication Instructions Recorded cetirizine 10 mg c
[2022-11-06 19:00] LABS: UTC Strep Screen (Rapid) Negative (Negative)
[2022-11-06 19:27] VITALS: BP 141/90; PULSE 91; RESP 18; TEMP 36.8; O2SAT 98
== END 2022-11-06 19:30 | disposition home or self-care (01) ==
PROVIDERS: Emergency Provider Nurse Practitioner; PCP Emergency Medicine
DX: J06.9 Acute upper respiratory infection, unspecified (principal); R07.0 Pain in throat; I10 Essential (primary) hypertension; E78.5 Hyperlipidemia, unspecified; K21.9 Gastro-esophageal reflux disease without esophagitis; R49.0 Dysphonia
CPT/HCPCS: 87880; 96372; 99212; 99214; G0463; J0696

== ENCOUNTER 2023-02-02 21:00 | Emergency (ER) | payer OTHER, SELFPAY ==
[2023-02-02 21:09] VITALS: BP 131/90; PULSE 87; RESP 16; TEMP 36.9; O2SAT 99; BMI 28.0
[2023-02-02 21:39] LABS: Strep Scrn Group A (Rapid) Negative (Negative)
--- NOTE | 2023-02-02 22:28 | HMH.EDGENADL ---
Discharge Plan Disposition Patient Disposition: Home, Self-Care Chief Complaint: Recheck/Abnormal Lab/Rx Prescriptions Prescriptions: No Action escitalopram oxalate 10 mg tablet 10 mg PO dicyclomine 20 mg tablet 20 mg PO BID Qty: 20 0RF chlorthalidone 25 mg tablet 25 mg PO DAILY lisinopril 20 mg tablet 20 mg PO DAILY atorvastatin 20 mg tablet 20 mg PO HS omeprazole 20 mg capsule,delayed release(DR/EC) 40 mg PO DAILY 30 Days Qty: 60 2RF famotidine [Acid Research Nurse (famotidine)] 20 mg tablet 40 mg PO HS Qty: 90 3RF cholecalciferol (vitamin D3) 50 mcg (2,000 unit) capsule 50 mcg PO DAILY Qty: 90 2RF cholecalciferol (vitamin D3) 1,250 mcg (50,000 unit) capsule 1,250 mcg PO WEEKLY Qty: 14 3RF fluticasone propionate 120 SPR/BOT bottle 1 spr NS DAILY 30 Days Qty: 16 0RF cetirizine 10 MG capsule 10 mg PO DAILY 30 Days Qty: 30 5RF fluticasone propionate [Flonase Allergy Relief] 50 mcg/actuation spray,suspension 1 - 2 spray intranasal DAILY Qty: 16 0RF Rx Instructions: administer into each nostril daily Referrals Follow up/Referrals: Santino Cruz MD [Primary Care Provider] - See instructions Activity Restrictions/Add. Instructions Additional Instructions/Restrictions: Call your family doctor to establish care for this visit to the emergency department and schedule follow-up within 48 hours to ensure improvement. If you have any worsening of your condition or any other concerning signs or symptoms, return to the emergency department or your primary care doctor for further evaluation. Clinical Impressions Clinical Impression: Sore throat, GERD (gastroesophageal reflux disease) Discharge ED Provider: Feliciano Rai General Adult HPI General Chief complaint: Recheck/Abnormal Lab/Rx Stated complaint: sor throat Time Seen by Provider: 02/02/23 21:18 Mode of Arrival: Family Vehicle Source of Information: Patient Limitations: No Limitations Description of Symptoms (Recalled from ER Triage Doc. by RN): 52 yo male presents with CC sore throat. States was treated 1 mos ago by [facility] and given steroids and antibiotics then. Reports it cleared up for a couple of days then started again. Saw ENT (dr rice) who felt like it was related to his GERD. Patient feels like it is sinus/ear drainage causing it. Denies OTC med use because i have a fatty liver, i like to drink and i am trying to be careful . History of Present Illness HPI narrative: 52-year-old male presenting with concerns for sore throat and thick mucus. Patient states he got COVID in 2020 and thinks that this is the cause of all of his symptoms. Takes acid medications for GERD and daily allergy medication. Patient states that his saliva seems thicker since he had COVID, he has become a little more round in his belly, and has multiple bowel movements today. Thinks this is all related to COVID. Because of the thick mucus he has been concerned about his throat. 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 Denies difficulty breathing, difficulty swallowing, pain with breathing or swallowing, pain with range of motion of neck, fevers or chills, any trauma, or any other concerns. Related Data Home Medications Medication Instructions Recorded Confirmed atorvastatin 20 mg tablet 20 mg PO HS 09/17/21 07/15/22 chlorthalidone 25 mg tablet 25 mg PO DAILY 09/17/21 07/15/22 lisinopril 20 mg tablet 20 mg PO DAILY 09/17/21 07/15/22 escitalopram oxalate 10 mg tablet 10 mg PO 02/21/22 07/15/22 Previous Rx's Medication Instructions Recorded cetirizine 10 mg capsule 10 mg PO DAILY 30 days #30 caps 11/18/21 fluticasone propionate 50 1 spr intranasal DAILY 30 days #16 11/18/21 mcg/actuation nasal grams spray,suspension dicyclomine 20 mg tablet 20 mg PO BID #20 tabs 04/21/22 cholecalciferol (vitamin D3) 1,250 1,250 mcg PO WEEKLY #14 caps 04/24/22 mcg (50,0
[2023-02-02 22:41] VITALS: BP 145/75; PULSE 88; RESP 19; TEMP 36.8; O2SAT 98
== END 2023-02-02 22:43 | disposition home or self-care (01) ==
PROVIDERS: Emergency Provider Emergency Medicine; PCP Emergency Medicine
DX: J02.9 Acute pharyngitis, unspecified (principal); K21.9 Gastro-esophageal reflux disease without esophagitis; E78.5 Hyperlipidemia, unspecified; I10 Essential (primary) hypertension
CPT/HCPCS: 87430; 99283

== ENCOUNTER 2024-11-21 19:55 | Emergency (ER) | payer BC, SELFPAY ==
[2024-11-21 20:09] VITALS: BP 130/94; PULSE 94; RESP 16; TEMP 36.9; O2SAT 97; BMI 26.6
--- OUTSIDE RECORDS SUMMARY | 2024-11-21 20:10 | XMS_ITS | Referral Summary ---
Author Organization [employer] ([place], [place], [place], [place]) Address [address] [place] [address] Care Team Providers Care Compounding Technician Name Role Phone Unavailable Primary Care Provider Unavailabl e Social History Tobacco Use Types Packs/Day Years Used Date Smoking Tobacco: Never Assessed Sex and Gender Information Value Date Recorded Sex Assigned at Male 11/19/2021 8:00 PM CDT Legal Sex Male 8:00 PM CDT Gender Identity Male 11/19/2021 8:00 PM CDT Sexual Orientation Not on file Plan of Treatment Not on file
--- OUTSIDE RECORDS SUMMARY | 2024-11-21 20:10 | XMS_ITS | Encounter Summary ---
Author Organization [employer] ([place], [place], [place], [place]) Address [address] [place] [address] Care Team Providers Care Office Mail Clerk Name Role Phone Unavailable Primary Care Provider Unavailabl e Encounter Details Date Type Department Care Team (Late st Contact Info) Description 02/28/2021 Transcribed Document [facility] [place] Medicine [facility] [place] [address] ProviderBonilla MD [address] [place] [id number] Social History Tobacco Use Types Packs/Day Years Used Date Smoking Tobacco: Never Assessed Sex and Gender Information Value Date Recorded Sex Assigned at Male 11/19/2021 8:00 PM CDT Legal Sex Male 8:00 PM CDT Gender Identity Male 11/19/2021 8:00 PM CDT Sexual Orientation Not on file documented as of this encounter Miscellaneous Notes * Cerner Conversion Note - Bonilla Hollingsworth MD - 02/28/2021 10:02 PM CDT ED Discharge Entered On: 02/28/2021 22:02 EDT Performed On: 02/28/2021 22:02 EDT by KIERA FRIEDMAN RN Discharge Process Patient Disposition : Discharge Personal Belongings With Patient : Yes Patient Education Completed : Yes Teaching Evaluation : Verbalizes understanding IV Discontinued : Not applicable Nursing Documentation Completed : No KIERA FRIEDMAN RN - 02/28/2021 22:02 EDT documented in this encounter Plan of Treatment Not on file documented as of this encounter Visit Diagnoses Not on filedocumented in this encounter
--- OUTSIDE RECORDS SUMMARY | 2024-11-21 20:10 | XMS_ITS | Encounter Summary ---
Author Organization [employer] ([place], [place], [place], [place]) Address [address] [place] [address] Care Team Providers Care Iuss Acoustic Analyst Name Role Phone Unavailable Primary Care Provider Unavailabl e Encounter Details Date Type Department Care Team (Late st Contact Info) Description 02/28/2021 Transcribed Document [facility] [place] Family Medicine [facility] [place] [address] ProviderBonilla MD [address], [place] [id number] Social History Tobacco Use Types Packs/Day Years Used Date Smoking Tobacco: Never Assessed Sex and Gender Information Value Date Recorded Sex Assigned at Male 11/19/2021 8:00 PM CDT Legal Sex Male 8:00 PM CDT Gender Identity Male 11/19/2021 8:00 PM CDT Sexual Orientation Not on file documented as of this encounter Miscellaneous Notes * Cerner Conversion Note - Bonilla Hollingsworth MD - 02/28/2021 8:13 PM CDT ED Assessment Entered On: 02/28/2021 20:57 EDT Performed On: 02/28/2021 20:55 EDT by KIERA FRIEDMAN RN ED Quick Look Assessment Level of Consciousness : Alert, Awake Affect/Behavior : Appropriate, Calm, Cooperative Orientation : Oriented x 4 Skin Temperature : Warm Skin Description : Normal for ethnicity KIERA FRIEDMAN RN - 02/28/2021 20:55 EDT ED General-Functional Assess Information Obtained From : Patient Communication Barrier : None Primary Language : Maltese Any Spiritual/Cultural Needs or Requests : No Currently in Unsafe Situation : No KIERA FRIEDMAN RN - 02/28/2021 20:55 EDT Social Habits Smoking Status : Never (less than 100 in lifetime; none in last 30 days) Smokeless Tobacco Status : Never Desires Tobacco Cessation Calc : 0 KIERA FRIEDMAN RN - 02/28/2021 20:55 EDT Social History (As Of: 02/28/2021 20:57:01 EDT) Tobacco: Smoking Status Never smoker. (Last Updated: 05/29/2016 10:52:46 EST by KIERA PULIDO RN) EENT Assessment EENT Assessment WDL : WDL with exceptions (Comment: loss of taste and smell since x 1 wk [KIERA FRIEDMAN RN - 02/28/2021 20:55 EDT] ) KIERA FRIEDMAN RN - 02/28/2021 20:55 EDT Cardiovascular ASMT, ED Chest Pain : No KIERA FRIEDMAN RN - 02/28/2021 20:55 EDT Pulses Grid Radial Pulse, Left : 2+ normal Radial Pulse, Right : 2+ normal KIERA FRIEDMAN RN - 02/28/2021 20:55 EDT Respiratory Breath Sounds Auscultated : Posterior, Anterior Respiratory Assessment WDL : WDL with exceptions Cough : Congested KIERA FRIEDMAN RN - 02/28/2021 20:55 EDT Breath Sounds Assessment Grid All Lobes Breath Sounds : Clear KIERA FRIEDMAN RN - 02/28/2021 20:55 EDT documented in this encounter Plan of Treatment Not on file documented as of this encounter Visit Diagnoses Not on filedocumented in this encounter
--- OUTSIDE RECORDS SUMMARY | 2024-11-21 20:10 | XMS_ITS | Encounter Summary ---
Author Organization Healthcare Address [address] [place] [address] Care Team Providers Care Rubber Cutter And Shape Carver Name Role Phone Mendel Briones MD Primary Care Provider [phone] Encounter Details Date Type Department Care Team (Late Contact Info) Description 01/22/2022 Community [facility] [address] [place] [address] Pati Bertrand, STACK SUPERVISOR [address] [place], [place] [id number] Dysphagia, unspecified type (Primary Dx) Social History Tobacco Use Types Packs/Day Years Used Date Smoking Tobacco: Never Assessed Sex and Gender Information Value Date Recorded Sex Assigned at Not on file Legal Sex Male 6:24 PM EDT Gender Identity Not on file Sexual Orientation Not on file documented as of this encounter Plan of Treatment Upcoming Encounters Date Type Department Care Team (Late st Contact Info) Description 07/05/2025 1:15 PM EST Office Visit [facility] [address] [place] [address] Kurtis Mendez, OD [address] [place] [address] documented as of this encounter Visit Diagnoses Diagnosis Dysphagia, unspecified type- Primary documented in this encounter Care Teams Rubber Cutter And Shape Carver Relationship Specialty Start Date End Date Mendel Briones MD [address] [place] [address] PCP - General 10/05/20 documented as of this encounter
--- OUTSIDE RECORDS SUMMARY | 2024-11-21 20:10 | XMS_ITS | Encounter Summary ---
Author Organization Healthcare Address [address] [place] [address] Care Team Providers Care Part Time Flexible Clerk Name Role Phone Mendel Briones MD Primary Care Provider [phone] Encounter Details Date Type Department Care Team (Late Contact Info) Description 09/12/2022 Community [facility] [address] [place] [address] Nish Grajeda, SCHOOL PSYCHOLOGY SPECIALIST [address] [facility][Note 3][address] [place], [place] [id number] Allergy, subsequent encounter (Primary Dx) Social History Tobacco Use Types [...] Description 07/05/2025 1:15 PM EST Office Visit [facility] [address] [facility] [place] [address] Kurtis Mendez, OD [address] [place] [address] documented as of this encounter Visit Diagnoses Diagnosis Allergy, subsequent encounter- Primary documented in this encounter Care Teams Part Time Flexible Clerk Relationship Specialty Start Date End Date Mendel Briones MD [address] [place] [address] PCP - General 10/05/20 documented as of this encounter
--- OUTSIDE RECORDS SUMMARY | 2024-11-21 20:10 | XMS_ITS | Encounter Summary ---
Author Organization Healthcare Address [address] [place] [address] Care Team Providers Care Certified Professional Controller Name Role Phone Mendel Briones MD Primary Care Provider [phone] Encounter Details Date Type Department Care Team (Late st Contact Info) Description 08/03/2021 Community [facility] Community Practice [address] [place] [address] Eva Peguero, DERECK [address] [place] [id number] Primary testicular failure (Primary Dx) Social History Tobacco Use Types [...] Description 07/05/2025 1:15 PM EST Office Visit [facility] [address] [facility] [place] [address] Kurtis Mendez, TOY [address] [place] [address] documented as of this encounter Visit Diagnoses Diagnosis Primary testicular failure- Primary Other testicular hypofunction documented in this encounter Care Teams Certified Professional Controller Relationship Specialty Start Date End Date Mendel Briones MD [address] [place] [address] PCP - General 10/05/20 documented as of this encounter
--- OUTSIDE RECORDS SUMMARY | 2024-11-21 20:10 | XMS_ITS | Encounter Summary ---
Author Organization [employer] ([place], [place], [place], [place]) Address [address] [place] [address] Care Team Providers Care Iphone Developer Name Role Phone Unavailable Primary Care Provider Unavailabl e Encounter Details Date Type Department Care Team (Late st Contact Info) Description 02/28/2021 Transcribed Document [facility] [facility] [place] [address] ProviderBonilla MD [address], [place] [id number] Social History Tobacco Use Types Packs/Day Years Used Date Smoking Tobacco: Never Assessed Sex and Gender Information Value Date Recorded Sex Assigned at Male 11/19/2021 8:00 PM CDT Legal Sex Male 8:00 PM CDT Gender Identity Male 11/19/2021 8:00 PM CDT Sexual Orientation Not on file documented as of this encounter Miscellaneous Notes * Cerner Conversion Note - Bonilla ProviderMD - 02/28/2021 9:44 PM CDT Electronically signed by Jassi [facility] Conversion Lathe Puller Delia at 09/12/2022 4:28 PM CDT documented in this encounter Plan of Treatment Not on file documented as of this encounter Visit Diagnoses Not on filedocumented in this encounter
--- OUTSIDE RECORDS SUMMARY | 2024-11-21 20:10 | XMS_ITS | Encounter Summary ---
Author Organization [employer] ([place], [place], [place], [place]) Address [address] [place] [address] Care Team Providers Care Regional Operations Director Name Role Phone Unavailable Primary Care Provider Unavailabl e Encounter Details Date Type Department Care Team (Late st Contact Info) Description 02/28/2021 Transcribed Document [facility] [place] [facility] [place] [address] ProviderBonilla MD [address] [place] [id number] Social History Tobacco Use Types Packs/Day Years Used Date Smoking Tobacco: Never Assessed Sex and Gender Information Value Date Recorded Sex Assigned at Male 11/19/2021 8:00 PM CDT Legal Sex Male 8:00 PM CDT Gender Identity Male 11/19/2021 8:00 PM CDT Sexual Orientation Not on file documented as of this encounter Miscellaneous Notes * Cerner Conversion Note - Bonilla ProviderMD - 02/28/2021 8:13 PM CDT ED Triage Entered On: 02/28/2021 20:32 EDT Performed On: 02/28/2021 20:26 EDT by KIERA FRIEDMAN RN ED Triage Across the Room Chief Complaint : pt reports cough, loss of taste & smell, hard to take deep breath. pt reports had xray thursday and it was normal. has a pulse ox at home and showed 90% and was concerned. also reports chest congestion; taking nyquil and dayquil c minimal improvement. Triage Date/Time : 02/28/2021 20:26 EDT KIERA FRIEDMAN RN - 02/28/2021 20:26 EDT DCP GENERIC CODE Tracking Acuity : 3 - Urgent Tracking Group : [facility] ED KIERA FRIEDMAN RN - 02/28/2021 20:26 EDT Mode of Arrival : Ambulatory Transported to ED by : Walk in To Room Via : Ambulate Accompanied By : Unaccompanied ED Vital Signs : Document Height & Weight : Document ED Allergies : Document ED Reason for Visit : Document KIERA FRIEDMAN RN - 02/28/2021 20:26 EDT Infectious Disease History Does patient have symptoms of COVID-19? : No Has the Patient Been Tested for COVID-19 in the last 14 days? : No, Patient stated Does the Patient state known exposure to a COVID-19 positive case in the last 14 days? : Unable to obtain or unsure Patient Vaccinated for COVID-19 : Not vaccinated Does Patient want a COVID-19 Vaccine? : No KIERA FRIEDMAN RN - 02/28/2021 20:26 EDT Infectious Disease Risk Screening Grid Cough < 2 wks of unknown origin : NO Cough > 2 weeks : NO Blood in Sputum : NO Fever or self-reported Fever : NO Rash of unknown origin : NO Headache : NO Stiff neck : NO Night Sweats : NO Unexplained Weight Loss : NO Diarrhea (3 episode per day) : NO KIERA FRIEDMAN RN - 02/28/2021 20:26 EDT Physical contact outside [place] in the last 30 days : No Hospitalized in Foreign Country : No Infectious Disease History : None INF Disease TB Screening Calc : 0 INF Disease Recent Travel Calc : 0 KIERA FRIEDMAN RN - 02/28/2021 20:26 EDT Vital Signs ED Temperature Source : Oral Temperature Mode : Fahrenheit ED Pain : No Oxygen Therapy Mode : Room air Peripheral Pulse Rate : 92 bpm Respiratory Rate : 20 Breaths/Min Systolic Blood Pressure : 128 mmHg Diastolic Blood Pressure : 100 mmHg (HI) Oxygen Saturation : 94 % KIERA FRIEDMAN RN - 02/28/2021 20:26 EDT Allergy (As Of: 02/28/2021 20:32:25 EDT) Allergies (Active) No Known Allergies Estimated Onset Date: Unspecified ; Created By: FRANCESCA CASTRO RN; Reaction Status: Active ; Category: Drug ; Substance: No Known Allergies ; Type: Allergy ; Updated By: FRANCESCA CASTRO RN; Reviewed Date: 02/28/2021 20:28 EDT Diagnosis Control ED (As Of: 02/28/2021 20:32:25 EDT) Diagnoses(Active) Congestion Date: 02/28/2021 ; Diagnosis Type: Reason For Visit ; Confirmation: Complaint of ; Clinical Dx: Congestion ; Classification: Medical ; Clinical Service: Non-Specified ; Code: PNED ; Probability: 0 ; Diagnosis Code: [id number] ED Height and Weight Height Source : Stated Height Entry Format : Freeborn Height, Feet : 5 ft(Converted to: 152 cm, 60 Inch) Height, Inches : 9 Inch(Converted to: 0 ft 9 Inch, 22.86 cm) Clinical Height : 175.26 cm Weight Source, ED : Critical estimated dosing weight Weight Entry Format : Freeborn Weight, Pounds : 189 lb Clinical Dosing Weight : 85.91 kg Body Surface Area (BSA) : 2.02 m2 Body Mass Index : 28 kg/m2 (HI) [place] Body Weight (IBW) : 69.73 kg KIERA FRIEDMAN RN - 02/28/2021 20:26 EDT documented in this encounter Plan of Treatment Not on file documented as of this encounter Visit Diagnoses Not on filedocumented in this encounter
--- OUTSIDE RECORDS SUMMARY | 2024-11-21 20:10 | XMS_ITS | Encounter Summary ---
Author Organization [employer] ([place], [place], [place], [place]) Address [address] [place] [address] Care Team Providers Care Oil Expeller Name Role Phone Unavailable Primary Care Provider Unavailabl e Encounter Details Date Type Department Care Team (Late st Contact Info) Description 02/28/2021 Transcribed Document [facility] [place] [facility] [address] ProviderBonilla MD [address] [place] [address] Social History Tobacco Use Types Packs/Day Years Used Date Smoking Tobacco: Never Assessed Sex and Gender Information Value Date Recorded Sex Assigned at Male 11/19/2021 8:00 PM CDT Legal Sex Male 8:00 PM CDT Gender Identity Male 11/19/2021 8:00 PM CDT Sexual Orientation Not on file documented as of this encounter Miscellaneous Notes * Cerner Conversion Note - Bonilla Hollingsworth MD - 02/28/2021 9:56 PM CDT [place] [place] [address] ISAIAS JENKINS :1970 Visit Time:02/28/2021 Your Visit Summary Your Care Team Primary Provider: HENRIETTA CUNNINGHAM PA-C Secondary Provider: Your Diagnosis Congestion COVID-19 Medical screening exam Medical Information You may obtain a copy of your Emergency Department visit from Medical Records by calling the hospital phone number listed above and asking to be directed to the Medical Records Department. If you had special tests, such as EKG???s or X-rays, the interpretation of your tests given to you by the Emergency Department Physician is a preliminary report. Some fractures and illnesses fail to show up on preliminary tests. These will be reviewed again and we will call you if there are any new suggestions. If your symptoms continue notify your physician. After you leave, you should follow the instructions provided. What to do next Follow-Up Appointments Follow Up with Follow up with primary care provider When Within 5 to 7 days Comments Take medications as directed, continue symptomatic treatment at home, follow quarantine guidelines set by local health department, follow with PCP, return to emergency Department with new or worsening symptoms Allergies No Known Allergies Immunizations This Visit No Immunizations Found Medications What How Much When Instructions Next Dose methylPREDNISolone (Medrol Dosepak 4 mg oral tablet) 1 Packet(s) Oral Every Day Duration: 6 Day(s) as directed on package labeling Printed Prescription The home medications listed are only as accurate as the information you provided. Please continue taking all of your medications prescribed by your Primary Care Provider unless specifically told to change or discontinue the medication. Please direct any questions regarding your home medications to your Primary Care Provider. Take your medications faithfully. Do NOT skip medication. Do NOT stop taking medications without the direction of a physician. Carry a list of your medications with you at all times, and take this medication list with you to your first follow up visit. Report any side effects. Avoid herbal remedies unless discussed with your physician. As part of your treatment plan, your physician may have prescribed a limited course of a controlled substance. This medication may be given to help people with moderate or severe pain or for other medical conditions, but there are risks involved with treatment. Common side effects may include nausea, constipation, drowsiness, sweating, itching, dry mouth, and rash. More serious side effects may include cognitive and motor impairment, like problems with thinking, concentrating, alertness, and movement (e.g. slowed reflexes), and driving and operating heavy machinery can be dangerous. It is important for you to talk to your physician if you have these side effects or questions. These controlled substances can produce physical dependence and be habit-forming if taken for an extended period of time, which means that the body has gotten used to them and may experience withdrawal symptoms if they are abruptly stopped. Withdrawal symptoms can include runny nose, sweating, goose bumps, diarrhea, abdominal cramping, rapid heartbeat, difficulty sleeping, and nervousness. Please dispose of unused and medications per pharmacy guidance. Test Results Laboratory or Other Results This Visit (last charted value for your 02/28/2021 visit) No Laboratory or Other Results This Visit Education Materials 10 Things You Can Do to Manage Your COVID-19 Symptoms at Home If you have possible or confirmed COVID-19: 1. Stay home from work and school. And stay away from other public places. If you must go out, avoid using any kind of public transportation, ridesharing, or taxis. 2. Monitor your symptoms carefully. If your symptoms get worse, call your healthcare provider immediately. 3. Get rest and stay hydrated. 4. If you have a medical appointment, call the healthcare provider ahead of time and tell them that you have or may have COVID-19. 5. For medical emergencies, call 911 and notify the dispatch personnel that you have or may have COVID-19. 6. Cover your cough and sneezes with a tissue or use the inside of your elbow. 7. Wash your hands often with soap and water for at least 20 seconds or clean your hands with an alcohol-based hand banquet line cook that contains at least 60% alcohol. 8. As much as possible, stay in a specific room and away from other people in your home. Also, you should use a separate bathroom, if available. If you need to be around other people in or outside of the home, wear a mask. 9. Avoid sharing personal items with other people in your household, like dishes, towels, and bedding. 10. Clean all surfaces that are touched often, like counters, tabletops, and doorknobs. Use household cleaning sprays or wipes according to the label instructions. cdc.gov/coronavirus 11/23/2019 This information is not intended to replace advice given to you by your health care provider. Make sure you discuss any questions you have with your health care provider. Document Revised: 09/06/2020 Document Reviewed: 09/06/2020 Elsevier Patient Education ?? 2020 Elsevier Inc. Emergency Awareness and Preventative Care STROKE is an EMERGENCY Every Minute Counts Act FAST and Check for these signs: FACE Does the face look uneven? ARM Does one arm drift down? SPEECH Does their speech sound strange? TIME Call at any sign of stroke Stroke Risk Factors Atrial Fibrillation (irregular heartbeat) Diabetes Family history of stroke Heart Disease Heavy alcohol use High Blood Pressure High Cholesterol Physical inactivity and obesity Smoking Cigarette Smoking The facts are clear, cigarette smoking will shorten your life. Smoking can cause many illnesses along the way. As a healthcare provider, we recommend that you stop smoking. Assistance with quitting is available by contacting 4-083-MJOZNOW. This is a free resource providing counseling, support, and referral. Or you may contact your personal physician. [place] Suicide Prevention Lifeline: The National Suicide Prevention Lifeline is a national network of local crisis centers that provides free and confidential emotional support to people in suicidal crisis or emotional distress 24 hours a day, 7 days a week. Don't Wait! Stop a Heart Attack Before it Starts What is a heart attack? A heart attack is damage or to a part of the heart from severely decreased or lack of blood flow to the heart. Over time, arteries can become narrow from the buildup of fat and cholesterol, which is called plaque. The plaque can rupture causing a blood clot to form. When the blood clot forms, the artery can become severely narrowed or completely blocked, causing a heart attack. Heart attack is the leading cause of in the [place]. 85% of muscle damage occurs within the first 2 hours. Delay in the recognition of heart attack symptoms increases the chances of . Know the early symptoms of a heart attack: Nausea Feeling of fullness in chest Jaw Pain Pain that travels down one or both arms Fatigue/being tired Anxiety Back Pain Chest pressure, squeezing, or discomfort Shortness of breath Sweating, or a cold sweat Feeling of impending doom There are unusual signs of a heart attack, too! Women, the elderly, and diabetics may present with atypical symptoms: Fainting/dizziness Weakness Confusion Risk Factors for a Heart Attack Some heart disease risk factors, such as age and family history, cannot be changed. Others, like smoking and lack of exercise, can be changed. Smoking High Cholesterol High Blood Pressure Family History Obesity Age Gender (Males are at higher risk) Lack of Exercise Diabetes Diet Stress Excessive Alcohol Intake If you or someone you know is experiencing the signs and symptoms of a heart attack, DON???T DELAY. Call immediately and seek help. If someone collapses, perform CPR! Do not attempt to drive if you are having symptoms of heart attack. Hands-Only CPR Why Hands-Only CPR? Hands-Only CPR has been shown to be as effective as conventional CPR for cardiac arrests that occur outside of a hospital. Survival depends on immediately receiving CPR from someone nearby. How do you perform Hands-Only CPR? There are two easy steps: Call 9-1-1 if you see a teen or adult collapse Push hard and fast in the center of the chest at a beat of 100 beats per minute. Save a life! 4 WAYS TO GET AHEAD OF SEPSIS SEPSIS is a MEDICAL EMERGENCY. Time matters! Infections put you and your family at risk for a life-threatening condition called sepsis. Sepsis is the body's extreme response to an infection. It is life-threatening, and without timely treatment, sepsis can rapidly lead to tissue damage, organ failure, and . Sepsis happens when an infection you already have-in your skin, lungs, urinary tract or somewhere else-triggers a chain reaction throughout your body. 1 PREVENT INFECTIONS Take good care of chronic conditions. Talk to your doctor about getting the recommended vaccines. 2 PRACTICE GOOD HYGIENE Wash your hands frequently. Keep cuts or open sores clean and covered until they are healed. 3 KNOW THE SYMPTOMS Confusion or disorientation Shortness of breath High heart rate Fever, shivering, or feeling very cold Extreme pain or discomfort Clammy or sweaty skin 4 ACT FAST Get medical care IMMEDIATELY if you suspect sepsis or if you have an infection that is not getting better or is getting worse. To learn more about sepsis and how to prevent infections, visit www.cdc.gov/sepsis. The examination and treatment you have received in the Emergency Department has been done to provide an appropriate evaluation and stabilizing treatment on an emergency basis only. Given the limited resources, it is not meant to be a substitute for complete medical care. The follow-up doctor you named will receive a copy of your records and all test reports. IT IS IMPORTANT THAT YOU SCHEDULE A FOLLOW-UP APPOINTMENT AND ARE RE-EVALUATED. You should report any new complaints, symptoms, or remaining problems at that time. IT IS IMPOSSIBLE FOR THE EMERGENCY DEPARTMENT TO RECOGNIZE AND TREAT ALL ELEMENTS OF INJURY OR ILLNESS IN A SINGLE VISIT. If you have been referred to a specialist physician, it means that we believe you may have a condition that requires the expertise of a specialist. These physicians work in partnership with the hospital and have agreed to see referred patients in their office for further evaluation. KEEP IN MIND THAT THE SPECIALIST HAS HIS/HER OWN OFFICE POLICIES WHICH MAY REQUIRE PROPER INSURANCE OR PAYMENT UP FRONT BEFORE THE SPECIALIST WILL SEE YOU. It is your responsibility to call the specialist physician to make an appointment. We do not have the ability to refer patients to specialists/physicians that work with specific insurance companies. Please be advised that all financial charges or billing practices are determined by that practice, not the hospital. If your insurance company requires that you see a specialist from their approved list, it is your responsibility to contact your insurance company to make those arrangements. It is also your responsibility to follow any other requirements of your insurance company necessary to obtain coverage for claims submitted. We will bill your insurance; however, you are responsible today for any co-pay amounts. You will receive a separate bill for any services you may have received including: emergency, radiology, or pathology physicians. Patient Name:ISAIAS JENKINS I have received this information and was given the opportunity to ask questions. Patient/Director Life Name: Patient/Director Life Signature: Relationship to Patient: Clinician/Hospital Director Life Signature: Please Provide a Telephone Number Where You Can Be Reached: Is it Permissible To Leave a Message? Date: Electronically signed by Interface, [facility] Conversion Pilot Can Router Delia at 09/12/2022 4:16 PM CDT documented in this encounter Plan of Treatment Not on file documented as of this encounter Visit Diagnoses Not on filedocumented in this encounter
--- OUTSIDE RECORDS SUMMARY | 2024-11-21 20:10 | XMS_ITS | Encounter Summary ---
Author Organization [employer] ([place], [place], [place], [place]) Address [address] [place] [address] Care Team Providers Care Director Of Scout Work Name Role Phone Unavailable Primary Care Provider Unavailabl e Encounter Details Date Type Department Care Team (Late st Contact Info) Description 02/28/2021 Transcribed Document [facility] [place] Medicine [address] [place] [address] ProviderBonilla MD [address], [place] [id number] Social History Tobacco Use Types Packs/Day Years [...] Bonilla ProviderMD - 02/28/2021 8:13 PM CDT [place] Suicide Severity Rating Scale (C-SSRS) Entered On: 02/28/2021 20:57 EDT Performed On: 02/28/2021 20:55 EDT by KIERA FRIEDMAN RN [place] Suicide Severity Rating Scale (C-SSRS) CSSRS Past Month Wish to be : No CSSRS Past Month Suicidal Thoughts : No CSSRS Lifetime Suicide Behavior : No Suicide Severity Rating Score : 0 Suicide Severity Rating : No Additional Care Required at this time KIERA FRIEDMAN RN - 02/28/2021 20:55 EDT Electronically signed by Curly Keene Conversion Plant And Maintenance Technician Cerner at 09/12/2022 4:10 PM CDT documented in this encounter Plan of Treatment Not on file documented as of this encounter Visit Diagnoses Not on filedocumented in this encounter
--- OUTSIDE RECORDS SUMMARY | 2024-11-21 20:10 | XMS_ITS | Clinical Summary ---
Author Organization [employer] ([place], [place], [place], [place]) Address [address] [place] [address] Care Team Providers Care Mechanical Fitter Name Role Phone Unavailable Primary Care Provider [...]
--- OUTSIDE RECORDS SUMMARY | 2024-11-21 20:10 | XMS_ITS | Encounter Summary ---
Author Organization [employer] ([place], [place], [place], [place]) Address [address] [place] [address] Care Team Providers Care Cosmetics Counter Manager Name Role Phone Unavailable Primary Care Provider Unavailabl e Encounter Details Date Type Department Care Team (Late st Contact Info) Description 02/28/2021 Transcribed Document [facility] [place] [address] [place] [address] ProviderBonilla MD [address] [place], [place] [id number] Social History Tobacco Use Types Packs/Day Years [...] Bonilla ProviderMD - 02/28/2021 8:13 PM CDT Broset Violence Assessment Entered On: 02/28/2021 20:57 EDT Performed On: 02/28/2021 20:55 EDT by KIERA FRIEDMAN RN Broset Violence Assessment Broset Violence Checklist of Symptoms : None Broset Violence Symptoms Subtotal : 0 Broset Violence Symptoms Indicator : Low risk (0) KIERA FRIEDMAN RN - 02/28/2021 20:55 EDT Electronically signed by Curly Keene Conversion Hydraulic Rubbish Compactor Mechanic Cerner at 09/12/2022 4:15 PM CDT documented in this encounter Plan of Treatment Not on file documented as of this encounter Visit Diagnoses Not on filedocumented in this encounter
--- OUTSIDE RECORDS SUMMARY | 2024-11-21 20:10 | XMS_ITS | Clinical Summary ---
Author Organization Healthcare Address [address] [place] [address] Care Team Providers Care Group Fitness Manager Name Role Phone Mendel Briones MD Primary Care Provider [phone] Allergies No known active allergies Medications atorvastatin (Lipitor) 20 MG tablet Take 1 tablet (20 mg) by mouth 1 (one) time each day. 3 Active chlorthalidone (Hygroton) 25 MG tablet Take 1 tablet (25 mg) by mouth 1 (one) time each day. 3 Active Vitamin D3 1.25 MG (21830 UT) capsule TAKE ONE CAPSULE BY MOUTH WEEKLY DIRECTED 3 Active famotidine (Pepcid) 20 MG tablet TAKE 2 TABLETS BY MOUTH nightly prior to bedtime for reflux Active Allergy Relief 180 MG tablet Take 1 tablet (180 mg) by mouth 1 (one) time each day. 3 Active fluticasone (Flonase) 50 MCG/ACT nasal spray place 1 - 2 sprays intranasally daily administer into each nostril daily Active lisinopril 20 MG tablet Take 1 tablet (20 mg) by mouth 1 (one) time each day. 3 Active omeprazole (PriLOSEC) [address] capsule take 1 capsule by mouth 30 minutes before morning meal once a day 3 Active Active Problems No known active problems Immunizations Immunization Administration Dates Next Due Influenza, seasonal, injectable, preservative fr ee 03/21/2014 Family History Medical History Relation Name Comments Glaucoma Father Cancer Maternal Grandfather Glaucoma Paternal Grandfather Relation Name Status Comments Father Maternal Grandfather Paternal Grandfather Social History Tobacco Use Types Packs/Day Years Used Date Smoking Tobacco: Never Smokeless Tobacco: Current Chew Tobacco Cessation:Ready to Q uit: No; Counseling Given: No Sex and Gender Information Value Date Recorded Sex Assigned at Not on file Legal Sex Male 6:24 PM EDT Gender Identity Not on file Sexual Orientation Not on file Last Filed Vital Signs Vital Sign Reading Time Taken Comments Blood Pressure - - Pulse - - Temperature - - Respiratory Rate - - Oxygen Saturation - - Inhaled Oxygen Concentration - - Weight 70.9 kg (156 lb 4.9 oz) 05/03/2014 10:38 AM EST Height 175.3 cm (5' 9 ) 05/03/2014 10:38 AM EST Body Mass Index 23.08 05/03/2014 10:38 AM EST Plan of Treatment Upcoming Encounters Date Type Department Care Team (Late st Contact Info) Description 07/05/2025 1:15 PM EST Office Visit [facility] [address] [place] [address] Kurtis Mendez, OD [address] [address] Health Maintenance Due Date Last Done Comments [facility]-Depression Screening 1970 [facility]-HIV Screening 1970 [facility]-Hepatitis C Screening 1970 [facility]-/Child/Adol SDOH Screenings 1970 [facility]- SDOH Screenings 11/08/1989 [facility]-Adult SDOH Screenings 11/08/1989 [facility]-DTaP,Tdap,and Td Vaccine s (1 - Tdap) 11/08/1990 CT Colonography 11/08/2016 Colonoscopy 11/08/2016 FIT-DNA 11/08/2016 FIT 11/08/2016 FOBT 11/08/2016 Sigmoidoscopy 11/08/2016 [facility]-Colorectal Cancer Screening 11/08/2016 [facility]-Pneumococcal Vaccine: 50 + Years (1 of 1 - PCV) 11/08/2021 [facility]-Zoster Vaccines (1 of 2) 11/08/2021 [facility]-Hepatitis B Vaccines (3 of 3 - 19+ 3-dose series) 01/30/2022 09/04/2021, 07/30/2021 [id number] Vaccine ( season) 2024 01/16/2022, 07/08/2021, 03/30/2021 [facility]-Influenza Vaccine (Seaso n Ended) 2025 03/10/2022, 03/21/2014 HPV Vaccines Aged Out No longer eligi ble based on patient's age to complete this topic [facility]-HIB Vaccines Aged Out No longer e ligible based on patient's age to complete this topic [facility]-Hepatitis A Vaccines Aged Out No longer eligible based on patient's age to complete this topic [facility]-IPV Vaccines Aged Out No longer e ligible based on patient's age to complete this topic [facility]-Rotavirus Vaccines Aged Out No lo nger eligible based on patient's age to complete this topic Insurance Care Teams Group Fitness Manager Relationship Specialty Start Date End Date Mendel Briones MD [address] [place] [address] PCP - General 10/05/20
--- OUTSIDE RECORDS SUMMARY | 2024-11-21 20:10 | XMS_ITS | Encounter Summary ---
Author Organization [facility] Address [address] [address] Care Team Providers Care Garage Laborer Name Role Phone Mendel Briones MD Primary Care Provider [phone] Reason for Referral * Consultation (Routine) - Closed Specialty Diagnoses / Procedures Referred By Contmika chaudhry Referred To Contact Ophthalmology Diagnoses Other glaucoma of both eyes Kimo Dixon MD [address] [facility] [address] [place] [address] Phone: tel: fax: [facility] [address] [place] [address] Phone: tel: fax: Referral ID Status Reason Start Date Expiration Date V isits Requested Visits Authorized [id number] Closed Specialty Services Required 02/23/2023 08/24/2024 1 1 Encounter Details Date Type Department Care Team (Late st Contact Info) Description 02/23/2023 Community Orders Community [facility] [address] [place] [address] Kimo Dixon MD [address] [place], [place] [id number] Fatty liver (Primary Dx); Other glaucoma of both eyes Social History Tobacco Use Types Packs/Day Years [...] Description 07/05/2025 1:15 PM EST Office Visit [facility] [address] [place] [address] Kurtis Mendez, OD [address] [place] [address] Scheduled Referrals Name Type Priority Associated Diagnoses Order Schedule Ambulatory Referral to Ophthalmology Outpatient Referral Routine Other glaucoma of both eyes Expected: 02/23/2023 (Approximate), Expires: 08/24/2024 documented as of this encounter Visit Diagnoses Diagnosis Fatty liver- Primary Other chronic nonalcoholic liver disease Other glaucoma of both eyes documented in this encounter Care Teams Garage Laborer Relationship Specialty Start Date End Date Mendel Briones MD [address] [place] [address] PCP - General 10/05/20 documented as of this encounter
--- OUTSIDE RECORDS SUMMARY | 2024-11-21 20:10 | XMS_ITS | Encounter Summary ---
Author Organization [employer] ([place], [place], [place], [place]) Address [address] [place] [address] Care Team Providers Care Application Tester Name Role Phone Unavailable Primary Care Provider Unavailabl e Encounter Details Date Type Department Care Team (Late st Contact Info) Description 02/28/2021 Transcribed Document [facility] [place] [facility] [place] [address] ProviderBonilla MD [address] [place] [address] Social History Tobacco Use Types [...] Conversion Note - Bonilla ProviderMD - 02/28/2021 9:38 PM CDT Patient: ISAIAS JENKINS Age: 50 years Sex: Male : 1970 Associated Diagnoses: COVID-19 Author: HENRIETTA CUNNINGHAM PA-C Basic Information Additional information: Chief Complaint from Nursing Triage Note : Chief Complaint 02/28/2021 20:26 EDT Chief Complaint pt reports cough, loss of taste & smell, hard to take deep breath. pt reports had xray thursday and it was normal. has a pulse ox at home and showed 90% and was concerned. also reports chest congestion; taking nyquil and dayquil c minimal improvement. . History of Present Illness The patient presents with Patient is 50-year-old male he presents the emergency department with complaints of cough and feeling like it is hard to breathe for the last week. Patient states that he tested positive for Covid and had a chest x-ray which was clear however his home O2 oxygen saturation got down to 90 so he became concerned and came to the emergency department. Patient states that he feels like his chest is congested and is taking NyQuil and DayQuil without improvement. Patient states he needs something to help him breathe better. He denies fever chills headache dizziness blurred vision shortness of breath chest pain abdominal pain nausea vomiting diarrhea dysuria hematuria numbness tingling decreased range of motion lower extremity edema rash. Review of Systems Additional review of systems information: All other systems reviewed and otherwise negative. Health Status Allergies: Allergic Reactions (Selected) No Known Allergies. Medications: (Selected) Inpatient Medications Ordered albuterol 2.5 mg/3 mL (0.083%) inhalation solution: 3 mL, Nebulized Inhalation, 1-Time dexAMETHasone: 10 mg, IntraMuscular, 1-Time. Immunizations: Per nurse's notes. Past Medical/ Family/ Social History Medical history Reviewed as documented in chart. Surgical history: No active procedure history items have been selected or recorded., Reviewed as documented in chart. Family history: No family history items have been selected or recorded., Reviewed as documented in chart. Social history: Social & Psychosocial Habits Tobacco 05/29/2016 Smoking Status Never smoker . Problem list: No qualifying data available , per nurse's notes. Physical Examination Vital Signs Vital Signs/Vital Measures 02/28/2021 20:26 EDT Systolic Blood Pressure 128 mmHg Diastolic Blood Pressure 100 mmHg HI Temperature Source Oral Temperature Mode Fahrenheit Peripheral Pulse Rate 92 bpm Respiratory Rate 20 Breaths/Min Oxygen Saturation 94 % Oxygen Therapy Mode Room air . Measurements 02/28/2021 20:26 EDT Height Source Stated Height Entry Format Hayden Height/Length, ANDORRAN (ft) 5 ft Height/Length ANDORRAN 9 Inch CLINICALHEIGHT 175.26 cm Hamilton Body Weight 69.73 kg Weight Source, ED Critical estimated dosing weight Weight Entry Format Hayden Weight Swazi lb 189 lb CLINICALWEIGHT 85.91 kg Body Surface Area (BSA) 2.02 m2 Body Mass Index 28 kg/m2 HI . Oxygen Saturation 02/28/2021 20:26 EDT Oxygen Saturation 94 % . General: Alert, no acute distress. Skin: Warm, dry, pink, intact. Head: Normocephalic, atraumatic. Neck: Supple, trachea midline. Eye: Normal conjunctiva. Ears, nose, mouth and throat: Oral mucosa moist. Cardiovascular: Regular rate and rhythm, Normal peripheral perfusion. Respiratory: Lungs are clear to auscultation, respirations are non-labored. Gastrointestinal: Soft, Nontender. Musculoskeletal: Normal ROM, normal strength. Neurological: Alert and oriented to person, place, time, and situation, No focal neurological deficit observed. Psychiatric: Cooperative, appropriate mood & affect. Medical Decision Making Differential Diagnosis: Viral syndrome. Rationale: PERC negative. Documents reviewed: Emergency department nurses' notes. Orders Include Previous Orders (Selected) Inpatient Orders Ordered Aerosol Treatment (RT): ED Isolation: Isolation: albuterol 2.5 mg/3 mL (0.083%) inhalation solution: 3 mL, Nebulized Inhalation, 1-Time dexAMETHasone: 10 mg, IntraMuscular, 1-Time Completed Broset Violence Assessment: ED Adult Fall Risk Assessment: ED Adult Triage: ED C-SSRS: ED Clinical Reconciliation: ED small animal caretaker: Deleted COVID-19: . Impression and Plan Diagnosis COVID-19 - Discharge, Medical Plan Condition: Improved, Stable. Disposition: Discharged Admit/Transfer/Discharge: Discharge (Order): Start: 02/28/2021 21:45 EDT, Discharge to: Home. Prescriptions: Prescription Crm System Administrator Pharmacy: [facility] Dosepak 4 mg oral tablet (Prescribe): 1 Packet, Oral, Daily, for 6 Day(s), as directed on package labeling, 21 Tab, 0 Refill(s). Patient was given the following educational materials: 10 Things You Can Do to Manage Your COVID-19 Symptoms at Home - [facility] (11/23/2019). Follow up with: ; Follow up with primary care provider Within 5 to 7 days Take medications as directed, continue symptomatic treatment at home, follow quarantine guidelines set by local health department, follow with PCP, return to emergency Department with new or worsening symptoms. Counseled: Patient, Regarding diagnosis, Regarding diagnostic results, Regarding treatment plan, Patient indicated understanding of instructions. documented in this encounter Plan of Treatment Not on file documented as of this encounter Visit Diagnoses Not on filedocumented in this encounter
--- NOTE | 2024-11-21 20:22 | HMH.EDGENADL ---
Discharge Plan Disposition Patient Disposition: Home, Self-Care Condition: Good Prescriptions Prescriptions: No Action escitalopram oxalate 10 mg tablet 10 mg PO dicyclomine 20 mg tablet 20 mg PO BID Qty: 20 0RF chlorthalidone 25 mg tablet 25 mg PO DAILY lisinopril 20 mg tablet 20 mg PO DAILY atorvastatin 20 mg tablet 20 mg PO HS omeprazole 20 mg capsule,delayed release(DR/EC) 40 mg PO DAILY 30 Days Qty: 60 2RF famotidine [Acid Geodetic Surveyor (famotidine)] 20 mg tablet 40 mg PO HS Qty: 90 3RF cholecalciferol (vitamin D3) 50 mcg (2,000 unit) capsule 50 mcg PO DAILY Qty: 90 2RF cholecalciferol (vitamin D3) 1,250 mcg (50,000 unit) capsule 1,250 mcg PO WEEKLY Qty: 14 3RF fluticasone propionate 120 SPR/BOT bottle 1 spr NS DAILY 30 Days Qty: 16 0RF cetirizine 10 MG capsule 10 mg PO DAILY 30 Days Qty: 30 5RF fluticasone propionate [Flonase Allergy Relief] 50 mcg/actuation spray,suspension 1 - 2 spray intranasal DAILY Qty: 16 0RF Rx Instructions: administer into each nostril daily Referrals Follow up/Referrals: Provider,Referral, [Primary Care Provider, Medical] - See instructions Pastor Maguire DO [Staff Physician, Family Practice] - See instructions Referral Note: To establish care En Marshall MD [Physician, Ear, Nose, Throat] - See instructions Activity Restrictions/Add. Instructions Additional Instructions/Restrictions: Please follow-up with your family doctor, if you do not have a current family doctor, please follow-up with the provider listed above, please call the office for an appointment. I recommend [id number] antihistamine such as Claritin or Zyrtec for your allergic rhinitis type symptomatology, continue use your Flonase as needed. Continue to take all other medications as prescribed. Please return to the emergency department any worsening signs or symptoms. If you have further sinus troubles please follow-up with ear nose throat doctor as listed above. Clinical Impressions Clinical Impression: History of deviated nasal septum, Sinusitis URI (upper respiratory infection) Qualifiers: URI type: unspecified URI Qualified Code(s): J06.9 - Acute upper respiratory infection, unspecified Print Language Print Language: Hong Konger Discharge ED Provider: Feliciano Rai General Adult HPI <DERECK Sheppard - Last Filed: 11/21/24 21:39> General Chief complaint: Weakness Stated complaint: Left neck and left shoulder pain,nasal drainage Time Seen by Provider: 11/21/24 20:01 Mode of Arrival: Ambulatory Source of Information: Patient Description of Symptoms (Recalled from ER Triage Doc. by RN): pt presents for evaluation of fatigue with some sinus congtestion in his throat that has been on going for awhile pt reports intermittent dizziness when I work all day Pt reports to working out in the heat every day but reports to staying hydrated. History of Present Illness HPI narrative: 54-year-old male presents to the emergency department with multiple medical complaints, most recently over the last several days, patient states he has been working out in the heat , experiencing fatigue, and neck pain as well as headache, as well as some intermittent dizziness. Patient also complains of congestion, sinus pressure, and what sound like postnasal drip, that has been going on for the last month. Patient denies any numbness tingling, denies any fever chills cough, congestion, chest pain, shortness of breath, no nausea no vomiting no constipation no diarrhea no abdominal pain, no urinary type symptomatology. Patient is a current everyday user of tobacco (smokeless tobacco), denies any alcohol or drug use. Has other past medical history consistent with GERD, deviated septum, chronic sinusitis, hypertension, hyperlipidemia, generalized anxiety disorder, fatty liver disease, and glaucoma. Initial triage vitals are grossly unremarkable. Onset (ago): month(s) Related Data Home Medications ?Medication ?Instructions ?Recorded ?Confirmed atorvastatin 20 mg tablet 20 mg PO HS 09/17/21 07/15/22 chlorthalidone 25 mg tablet 25 mg PO DAILY 09/17/21 07/15/22 lisinopril 20 mg tablet 20 mg PO DAILY 09/17/21 07/15/22 escitalopram oxalate 10 mg tablet 10 mg PO 02/21/22 07/15/22 Previous Rx's ?Medication ?Instructions ?Recorded cetirizine 10 mg capsule 10 mg PO DAILY 30 days #30 caps 11/18/21 fluticasone propionate 50 1 spr intranasal DAILY 30 days #16 11/18/21 mcg/actuation nasal grams spray,suspension dicyclomine 20 mg tablet 20 mg PO BID #20 tabs 04/21/22 cholecalciferol (vitamin D3) 1,250 1,250 mcg PO WEEKLY #14 caps 04/24/22 mcg (50,000 unit) capsule cholecalciferol (vitamin D3) 50 50 mcg PO DAILY #90 caps 04/24/22 mcg (2,000 unit) capsule famotidine 20 mg tablet (Acid 40 mg (2 x 20 mg) PO HS take 2 05/14/22 Geodetic Surveyor (famotidine)) tabs prior to bedtime for reflux #90 tabs omeprazole 20 mg capsule,delayed 40 mg (2 x 20 mg) PO DAILY reflux- 05/14/22 release take 2 tabs every morning 30 days #60 caps fluticasone propionate 50 1 - 2 spray intranasal DAILY #16 11/06/22 mcg/actuation nasal grams spray,suspension (Flonase Allergy Relief) Allergies Allergy/AdvReac Type Severity Reaction Status Date / Time No Known Allergies Allergy Verified 07/15/22 11:22 [facility] <DERECK Sheppard - Last Filed: 11/21/24 21:39> [facility] Disclaimer: The information contained in this section may have been updated after the patient was seen, as this information can be updated by other users. Medical History Chronic sinusitis Cough Dysphonia GERD (gastroesophageal reflux disease) History of deviated nasal septum Hyperlipidemia Hypertension Social History Smoking Status: Never smoker alcohol intake: current alcohol intake frequency: holidays/special occasions only substance use type: denies use current occupational status: employed Travel in the last 8 weeks?: None Have you lived/traveled outside US in past 30 days?: No Contact w/someone who lives/traveled outside US past 30 days?: No Exposure to someone with infectious disease in past 14 days?: No Do you have a fever (greater than 100.4 F or 38 C)?: No Have you tested positive for COVID-19?: No Exposed to someone with COVID-19 in past 14 days?: No Do you have a sore throat?: No Do you have a cough?: No Do you have any weakness?: No Do you have any diarrhea?: No Are you experiencing any unusual bleeding?: No Do you have any muscle aches/pain?: No Do you have any abdominal pain?: No Are you experiencing loss of taste or smell?: No Other Medical History Have you received the Flu Vaccine for this season: No Have you received the Pneumonia Vaccine: No <DERECK Sheppard - Last Filed: 11/21/24 21:39> ROS Obtained: Yes All systems reviewed & no additional complaints except as documented Physical Exam <DERECK Sheppard - Last Filed: 11/21/24 21:39> General General appearance: alert and in no apparent distress Head Head exam: atraumatic and normocephalic Eye Eye exam: Present PERRL and EOMI ENT ENT exam: Present normal exam, normal oropharynx, mucous membranes moist and other (No sinus pressure/pain to palpation of the sinuses) Neck Neck exam: Present normal inspection Chest Chest inspection: Present normal inspection and symmetric chest wall rise Respiratory Respiratory exam: Present normal lung sounds bilaterally; Absent respiratory distress Cardiovascular Cardiovascular exam: Present regular rate and normal rhythm Abdominal Exam Abdominal exam: Present soft; Absent tenderness Extremities Exam Extremities exam: Present normal inspection Neurological Exam Neurological exam: Present alert, oriented X3 and other (5 out of 5 strength in the bilateral lower and upper extremities, no gross sensation deficit.) Psychiatric Psychiatric exam: Present normal affect Skin Skin exam: Present warm and dry Medical Decision Making <DERECK Sheppard - Last Filed: 11/21/24 21:39> Medical Records Medical records reviewed: Yes I reviewed the patient's medical records. Screening: Per USPSTF and CDC recommendations, given the prevalence of disease in our region, it is our hospital?s policy to screen for HIV and viral Hepatitis for all patients aged 18 and over and those with ongoing risk factors. Robert Inquiry Pt receiving controlled substance: No Robert was queried for this patient: No Vital Signs: 11/21/24 20:09 11/21/24 20:31 11/21/24 20:45 Temperature 98.5 F Temperature Source Oral Pulse Rate 95 H 93 H Pulse Rate [Radial] 94 H Respiratory Rate 16 Blood Pressure 120/96 H 132/86 Blood Pressure [Right Arm] 130/94 H Blood Pressure Mean [Right Arm] 106 Blood Pressure Position [Right Arm] Sitting 02 Sat by Pulse Oximetry 97 97 96 Oxygen Delivery Method Room Air 11/21/24 21:00 Temperature Temperature Source Pulse Rate 67 Pulse Rate [Radial] Respiratory Rate Blood Pressure 144/98 H Blood Pressure [Right Arm] Blood Pressure Mean [Right Arm] Blood Pressure Position [Right Arm] 02 Sat by Pulse Oximetry 98 Oxygen Delivery Method Lab Data Lab results reviewed: Yes I reviewed the patient's lab results. Lab Results 11/21/24 20:30: WBC 8.6, RBC 4.84, Hgb 14.9, Hct 40.7 L, MCV 84.1, MCH 30.8, MCHC 36.6 H, RDW 12.3, Plt Count 284, MPV 9.5, Neut % (Auto) 61.8, Lymph % (Auto) 27.4, Chambers % (Auto) 9.4 H, Eos % (Auto) 0.9, Baso % (Auto) 0.3, Neut # (Auto) 5.3, Lymph # (Auto) 2.4, Chambers # (Auto) 0.8, Eos # (Auto) 0.1, Baso # (Auto) 0.0, Sodium 136, Potassium 3.6, Chloride 97 L, Carbon Dioxide 28, BUN 21 H, Creatinine 0.90, Glucose 77, Calcium 9.5, Magnesium 1.8, Total Bilirubin 0.4, AST 31, ALT 26, Alkaline Phosphatase 81, Troponin I < 0.01, NT-Pro-B Natriuret Pep < 20.0, Total Protein 7.5, Albumin 4.7, SARS-CoV-2 (PCR) Not detected, Influenza A Untype (PCR) Not detected, Influenza Type B (PCR) Not detected 11/21/24 20:30 11/21/24 20:30 Orders (Tests/Meds): ORDERS Category Date Time Status Complete Blood Count Auto Diff Stat Lab 11/21/24 20:30 Completed Comprehensive Metabolic Panel Stat Lab 11/21/24 20:30 Results Magnesium Stat Lab 11/21/24 20:30 Results NT Pro Brain Natriuretic Pep. Stat Lab 11/21/24 20:30 Completed Rapid PCR Covid and Flu A/B Stat Lab 11/21/24 20:30 Completed Troponin I Q3H Lab 11/21/24 23:30 Ordered Troponin I Q3H Lab 11/22/24 02:30 Ordered Troponin I Stat Lab 11/21/24 20:30 Results Medical Decision Narrative: 54-year-old male presents to the emergency department with multiple medical complaints, see HPI for detail past medical history, differential diagnose include but not limited to, acute URI, acute rhinosinusitis, viral rhinitis, acute hypovolemia, cervicalgia, tension headache, cluster headache, chronic sinusitis, viral bronchitis, electrolyte disturbance, cardiac arrhythmia among others. I discussed the patient case with attending physician Will obtain basic laboratory studies magnesium level proBNP troponin rapid PCR COVID and flu as well as EKG. CBC unremarkable CMP unremarkable, troponin within normal limits at less than 0.01. Rapid PCR COVID and flu are negative I discussed the results with the patient at the bedside, patient has nonactionable laboratory studies, I do believe the patient may be suffering from some degree of allergic rhinitis/viral upper respiratory infection, possibly in setting of chronic sinusitis as the patient is has history of deviated septum and is previously seen ear nose throat provider for this. Recommend follow-up with ear nose throat provider, follow-up with PCP, and recommend good hydration when working outside in hot weather conditions. Also recommend OTC antihistamines as needed for symptomatic relief. Patient was given strict ED return precautions, patient will follow-up with PCP in the upcoming days/weeks. Patient voiced understanding and agreement with the current treatment plan/discharge plan. <Feliciano Rai MD - Last Filed: 11/21/24 21:11> Vital Signs: 11/21/24 20:09 11/21/24 20:31 11/21/24 20:45 Temperature 98.5 F Temperature Source Oral Pulse Rate 95 H 93 H Pulse Rate [Radial] 94 H Respiratory Rate 16 Blood Pressure 120/96 H 132/86 Blood Pressure [Right Arm] 130/94 H Blood Pressure Mean [Right Arm] 106 Blood Pressure Position [Right Arm] Sitting 02 Sat by Pulse Oximetry 97 97 96 Oxygen Delivery Method Room Air 11/21/24 21:00 Temperature Temperature Source Pulse Rate 67 Pulse Rate [Radial] Respiratory Rate Blood Pressure 144/98 H Blood Pressure [Right Arm] Blood Pressure Mean [Right Arm] Blood Pressure Position [Right Arm] 02 Sat by Pulse Oximetry 98 Oxygen Delivery Method Lab Data Lab Results 11/21/24 20:30: WBC 8.6, RBC 4.84, Hgb 14.9, Hct 40.7 L, MCV 84.1, MCH 30.8, MCHC 36.6 H, RDW 12.3, Plt Count 284, MPV 9.5, Neut % (Auto) 61.8, Lymph % (Auto) 27.4, Chambers % (Auto) 9.4 H, Eos % (Auto) 0.9, Baso % (Auto) 0.3, Neut # (Auto) 5.3, Lymph # (Auto) 2.4, Chambers # (Auto) 0.8, Eos # (Auto) 0.1, Baso # (Auto) 0.0, Sodium 136, Potassium 3.6, Chloride 97 L, Carbon Dioxide 28, BUN 21 H, Creatinine 0.90, Glucose 77, Calcium 9.5, Magnesium 1.8, Total Bilirubin 0.4, AST 31, ALT 26, Alkaline Phosphatase 81, Troponin I < 0.01, NT-Pro-B Natriuret Pep < 20.0, Total Protein 7.5, Albumin 4.7, SARS-CoV-2 (PCR) Not detected, Influenza A Untype (PCR) Not detected, Influenza Type B (PCR) Not detected Orders (Tests/Meds): ORDERS Category Date Time Status Complete Blood Count Auto Diff Stat Lab 11/21/24 20:30 Completed Comprehensive Metabolic Panel Stat Lab 11/21/24 20:30 Results Magnesium Stat Lab 11/21/24 20:30 Results NT Pro Brain Natriuretic Pep. Stat Lab 11/21/24 20:30 Completed Rapid PCR Covid and Flu A/B Stat Lab 11/21/24 20:30 Completed Troponin I Q3H Lab 11/21/24 23:30 Ordered Troponin I Q3H Lab 11/22/24 02:30 Ordered Troponin I Stat Lab 11/21/24 20:30 Results ECG Data Tracing #1: I reviewed this ECG and interpreted as documented below: (Sinus rhythm 81 bpm with TX 150, QRS 101, QTc 398. Normal axis no acute ischemic change) Medical Decision Narrative: 54-year-old male presents to the emergency department with multiple medical complaints, see HPI for detail past medical history, differential diagnose include but not limited to, acute URI, acute rhinosinusitis, viral rhinitis, acute hypovolemia, cervicalgia, tension headache, cluster headache, chronic sinusitis, viral bronchitis, electrolyte disturbance, cardiac arrhythmia among others. I discussed the patient case with attending physician Will obtain basic laboratory studies magnesium level proBNP troponin rapid PCR COVID and flu as well as EKG. CBC unremarkable CMP unremarkable, troponin within normal limits at less than 0.01. Critical Care <DERECK Sheppard - Last Filed: 11/21/24 21:39> Critical Care Time Critical Care Time: No
[2024-11-21 20:31] VITALS: BP 120/96; PULSE 95; O2SAT 97
[2024-11-21 20:37] LABS: Coronavirus 19, PCR Not Detected (NotDetected); Influenza A, PCR Not Detected (NotDetected); Influenza B, PCR Not Detected (NotDetected)
[2024-11-21 20:38] LABS: Basophils % 0.3 % (0.1-2.0); Eosinophils # 0.1 Kmm3 (0.0-0.4); Eosinophils % 0.9 % (0.1-12.0); Hematocrit 40.7 % (42.0-52.0); Hemoglobin 14.9 g/dL (14.1-18.0); Immature Granulocytes # 0.02 10^3uL; Immature Granulocytes % 0.2 %; Lymphocytes # 2.4 K/mm3 (0.7-4.5); Lymphocytes % 27.4 % (10-50); Mean Corpuscular HGB Conc 36.6 g/dL (31.8-35.4); Mean Corpuscular Hemoglobin 30.8 pg (27.0-31.2); Mean Corpuscular Volume 84.1 fl (80-94); Mean Platelet Volume 9.5 fl (7.4-10.4); Monocytes # 0.8 K/mm3 (0.1-1.0); Monocytes % 9.4 % (1.7-9.3); Neutrophils # 5.3 K/mm3 (1.8-7.8); Neutrophils % 61.8 % (37.0-80.0); Nucleated Red Blood Cells # 0 10^3/uL; Nucleated Red Blood Cells % 0 %; Platelet Count 284 K/mm3 (142-424); Red Blood Count 4.84 M/mm3 (4.60-6.20); Red Cell Distribution Width 12.3 % (11.5-17.5); Red Cell Distribution Width-SD 37.1 fL; White Blood Count 8.6 K/mm3 (4.8-10.8)
--- NOTE | 2024-11-21 20:41 | ECG_ITS ---
APPROVED REPORT Exam: Resting ECG HR:81 bpm ECG Measurements Heart Rate 81 AXES DE 150 P 53 QRSd 101 QRS 49 QT 360 T 43 QTc 398 Conclusion SINUS RHYTHM NORMAL ECG Electronically signed by : GABRIELLA BOYCE, 11/25/2024 14:07:02
[2024-11-21 20:45] VITALS: BP 132/86; PULSE 93; O2SAT 96
[2024-11-21 20:49] LABS: Alanine Aminotransferase 26 U/L (12-78); Albumin Level 4.7 g/dl (3.5-5.0); Albumin/Globulin Ratio 1.7 (1.1-1.8); Alkaline Phosphatase 81 U/L (38-126); Anion Gap 14.6 mEq/L (5-15); Aspartate Amino Transferase 31 U/L (17-59); Bilirubin,Total 0.4 mg/dl (0.2-1.3); Blood Urea Nitrogen 21 mg/dl (9-20); Calcium 9.5 mg/dl (8.4-10.2); Carbon Dioxide 28 mmol/L (22.0-30.0); Chloride 97 mmol/L (98-107); Creatinine Clearance Estimated 110 mL/min (50-200); Estimated Glomerular Filt Rate 88 ml/min (>60); GFR (African American) 107 ML/MIN (>60); Globulin 2.8 g/dL (1.3-3.2); Glucose 77 mg/dl (74-100); Magnesium 1.8 mg/dl (1.6-2.3); Potassium 3.6 mmoL/L (3.5-5.1); Sodium 136 mmol/L (136-145); Total Protein,Serum 7.5 g/dl (6.3-8.2)
[2024-11-21 20:57] LABS: NT Pro Brain Natriuretic Pep. < 20.0 pg/mL (0-125)
[2024-11-21 21:00] VITALS: BP 144/98; PULSE 67; O2SAT 98
[2024-11-21 21:01] LABS: Troponin I < 0.01 ng/ml (0.00-0.034)
--- NOTE | 2024-11-21 21:35 | PC.NURSE ---
ed provider at the bedside updating pt on POC
[2024-11-21 21:49] VITALS: BP 144/97; PULSE 84; RESP 14; TEMP 36.9; O2SAT 100
== END 2024-11-21 21:51 | disposition home or self-care (01) ==
PROVIDERS: Physician Assistant; Emergency Provider Emergency Medicine
DX: J01.90 Acute sinusitis, unspecified (principal); R51.9 Headache, unspecified
CPT/HCPCS: 80053; 83735; 83880; 84484; 85025; 87636; 93005; 99283

== ENCOUNTER 2024-12-30 10:55 | Outpatient (CLI) | payer BC, SELFPAY ==
[2024-12-30 18:38] LABS: Cholesterol 140 mg/dl (140-200); HDL Cholesterol 34 mg/dl (40-60); Triglycerides 236 mg/dl (30-150)
[2024-12-30 19:08] LABS: Thyroid Stimulating Hormone 0.59 uIU/mL (0.465-4.68)
[2024-12-30 19:13] LABS: Free T4 (Free Thyroxine) 0.68 ng/dl (0.78-2.19)
[2024-12-30 23:52] LABS: Hemoglobin A1C 5.4 % (4.0-6.0)
[2024-12-31 00:09] LABS: Hepatitis C Ab Qual. W/ RFX NEGATIVE (Negative)
--- OUTSIDE RECORDS SUMMARY | 2025-01-02 11:05 | XMS_ITS | Encounter Summary ---
Author Organization [facility] ([place], [place], [place], [place]) Address [address] [place] [address] Care Team Providers Care Dust Mixer Name Role Phone Unavailable Primary Care Provider Unavailabl e Encounter Details Date Type Department Care Team (Late st Contact Info) Description 02/28/2021 Transcribed Document [facility] Family Medicine [facility] [place] [address] ProviderBonilla MD [address] [place], [place] [id number] Social History Tobacco Use Types Packs/Day Years [...] 9:44 PM CDT Electronically signed by Jassi [facility] Conversion Returned Case Inspector Delia at 09/12/2022 4:28 PM CDT documented in this encounter Plan of Treatment Not on file documented as of this encounter Visit Diagnoses Not on filedocumented in this encounter
--- OUTSIDE RECORDS SUMMARY | 2025-01-02 11:05 | XMS_ITS | Encounter Summary ---
Author Organization [facility] Address [address] [place] [address] Care Team Providers Care Gallery Or Museum Technician Name Role Phone Mendel Briones MD Primary Care Provider [phone] Reason for Visit * Reason Comments Med Refill Encounter Details Date Type Department Care Team (Late st Contact Info) Description 12/12/2024 Refill [facility] [address] [place] [address] Indira Vargas, SHIFT BOSS, DNP [address] [place] [address] Encounter for screening for other disorder Social History Tobacco Use Types Packs/Day Years Used Date Smoking Tobacco: Never Smokeless Tobacco: Current Chew Sex and Gender Information Value Date Recorded Sex Assigned at Not on file Legal Sex Male 6:24 PM EDT Gender Identity Not on file Sexual Orientation Not on file documented as of this encounter Miscellaneous Notes * Telephone Encounter - Maury Jose PharmD - 12/12/2024 2:55 PM EDT 1 medication(s) has been denied per protocol due to: Patient unknown to prescriber. Not a patient for primary care. documented in this encounter Plan of Treatment Upcoming Encounters Date Type Department Care Team (Late st Contact Info) Description 07/05/2025 1:15 PM EST Office Visit [facility] [address] [place] [address] Kurtis Mendez, OD [address] [place] [address] documented as of this encounter Visit Diagnoses Diagnosis Encounter for screening for other disorder documented in this encounter Additional Health Concerns Assessment Noted Time A fall risk assessment has been complete d for the patient 05/04/2023 1:47 PM EST A Body Mass Index follow-up plan has been documented for the patient 06/29/2024 3:13 PM EST documented as of this encounter Care Teams Gallery Or Museum Technician Relationship Specialty Start Date End Date Mendel Briones MD [address] [place] [address] PCP - General 10/05/20 documented as of this encounter
--- OUTSIDE RECORDS SUMMARY | 2025-01-02 11:05 | XMS_ITS | Encounter Summary ---
Author Organization [facility] ([place], [place], [place], [place]) Address [address] [place] [address] Care Team Providers Care Watch And Clock Maker And Repairer Name Role Phone Unavailable Primary Care Provider Unavailabl e Encounter Details Date Type Department Care Team (Late st Contact Info) Description 02/28/2021 Transcribed Document [facility] Family Medicine [facility] [place] [address] ProviderBonilla MD [address] [place], [place] [id number] Social History Tobacco Use Types Packs/Day Years [...] : 3 - Urgent Tracking Group : [facility] ED KIERA FRIEDMAN RN - 02/28/2021 20:26 [...] PNED ; Probability: 0 ; Diagnosis Code: [id number] ED Height and Weight Height Source : Stated Height Entry Format : [place] Height, Feet : 5 ft(Converted to: 152 cm, 60 Inch) Height, Inches : 9 Inch(Converted to: 0 ft 9 Inch, 22.86 cm) Clinical Height : 175.26 cm Weight Source, ED : Critical estimated dosing weight Weight Entry Format : [place] Weight, Pounds : 189 lb Clinical Dosing Weight : 85.91 kg Body Surface Area (BSA) : 2.02 m2 Body Mass Index : 28 kg/m2 (HI) [place] Body Weight (IBW) : 69.73 kg KIERA FRIEDMAN RN - 02/28/2021 20:26 EDT documented in this encounter Plan of Treatment Not on file documented as of this encounter Visit Diagnoses Not on filedocumented in this encounter
--- OUTSIDE RECORDS SUMMARY | 2025-01-02 11:05 | XMS_ITS | Encounter Summary ---
Author Organization [facility] ([place], [place]) Address [address] [place] [address] Care Team Providers Care Implant Coordinator Name Role Phone Unavailable Primary Care Provider Unavailabl e Encounter Details Date Type Department Care Team (Late st Contact Info) Description 02/28/2021 Transcribed Document [facility] Family Medicine [facility] [place] [address] ProviderBonilla MD [address] [place], [place] [phone] Social History Tobacco Use Types Packs/Day Years [...]
--- OUTSIDE RECORDS SUMMARY | 2025-01-02 11:05 | XMS_ITS | Clinical Summary ---
Author Organization [facility] Address [address] [place] [address] Care Team Providers Care Reclamation Worker Name Role Phone Mendel Briones MD Primary Care Provider [phone] Allergies No known active allergies Medications atorvastatin (Lipitor) 20 MG tablet Take 1 tablet (20 mg) by mouth 1 (one) time each day. 3 Active chlorthalidone (Hygroton) 25 MG tablet Take 1 tablet (25 mg) by mouth 1 (one) time each day. 3 Active Vitamin D3 1.25 MG (08447 UT) capsule TAKE ONE CAPSULE BY MOUTH [...] Active Active Problems No known active problems Encounters Date Type Department Care Team Description 12/12/2024 [facility] [address] [place] [address] Indira Vargas APRN, DNP Encounter for screening for other disorder from Last 3 Months Immunizations Immunization Administration Dates Next Due Influenza, [...] Description 07/05/2025 1:15 PM EST Office Visit [facility] [address] [place] [address] Kurtis Mendez, OD [address] [address] Health Maintenance Due Date Last [...] - 19+ 3-dose series) 01/30/2022 09/04/2021, 07/30/2021 [id number] Vaccine (4 - 2023- season) 2024 01/16/2022, 07/08/2021, 03/30/2021 UKY-Influenza Vaccine (#1) 01/23/202503/10, 03/21/2014 HPV Vaccines Aged Out No longer [...] to complete this topic Insurance Care Teams Reclamation Worker Relationship Specialty Start Date End Date Mendel Briones MD [address] [place] [address] PCP - General 10/05/20
--- OUTSIDE RECORDS SUMMARY | 2025-01-02 11:05 | XMS_ITS | Encounter Summary ---
Author Organization [facility] Address [address] [place] [address] Care Team Providers Care Classifier Name Role Phone Mendel Briones MD Primary Care Provider [phone] Reason for Referral * Consultation (Routine) - Closed Specialty Diagnoses / Procedures Referred By Contmika chaudhry Referred To Contact Ophthalmology Diagnoses Other glaucoma of both eyes Kimo Dixon MD [address] [facility] [address] [place] [address] Phone: tel: fax: [facility] [address] [place] [address] Phone: tel: fax: Referral ID Status Reason Start Date Expiration Date V isits Requested Visits Authorized [id number] Closed Specialty Services Required 02/23/2023 08/24/2024 1 1 Encounter Details Date Type Department Care Team (Late st Contact Info) Description 02/23/2023 Community Orders Community Practice [address] [place] [address] Kimo Dixon MD [address] [place], [place] [id number] Fatty liver (Primary Dx); Other glaucoma of [...] Description 07/05/2025 1:15 PM EST Office Visit [facility] [address] [place] [address] Kurtis Mendez, OD [address] [place] [address] Scheduled Referrals Name Type Priority Associated Diagnoses Order Schedule Ambulatory Referral to Ophthalmology Outpatient Referral Routine Other glaucoma of both eyes Expected: 02/23/2023 (Approximate), Expires: 08/24/2024 documented as of this encounter Visit Diagnoses Diagnosis Fatty liver- Primary Other chronic nonalcoholic liver disease Other glaucoma of both eyes documented in this encounter Care Teams Classifier Relationship Specialty Start Date End Date Mendel Briones MD [address] [place] [address] PCP - General 10/05/20 documented as of this encounter
--- OUTSIDE RECORDS SUMMARY | 2025-01-02 11:05 | XMS_ITS | Encounter Summary ---
Author Organization Healthcare Address [address] [place] [address] Care Team Providers Care Weather Anchor Name Role Phone Mendel Briones MD Primary Care Provider [phone] Encounter Details Date Type Department Care Team (Late st Contact Info) Description 08/03/2021 Community [facility] [address] [place] [address] Eva Peguero, DERECK [address] [place] [address] Primary testicular failure (Primary Dx) Social History [...] Description 07/05/2025 1:15 PM EST Office Visit [facility] [address] [facility] [place] [address] Kurtis Mendez, TOY [address] [place] [address] documented as of this encounter Visit Diagnoses Diagnosis Primary testicular failure- Primary Other testicular hypofunction documented in this encounter Care Teams Weather Anchor Relationship Specialty Start Date End Date Mendel Briones MD [address] [place] [address] PCP - General 10/05/20 documented as of this encounter
--- OUTSIDE RECORDS SUMMARY | 2025-01-02 11:05 | XMS_ITS | Encounter Summary ---
Author Organization Healthcare Address [address] [place] [address] Care Team Providers Care Roller Operator Name Role Phone Mendel Briones MD Primary Care Provider [phone] Encounter Details Date Type Department Care Team (Late Contact Info) Description 01/22/2022 Community [facility] [address] [place] [address] Pati Bertrand, BIOMASS PLANT TECHNICIAN [address] [place], [place] [id number] Dysphagia, unspecified type (Primary Dx) Social History [...] Description 07/05/2025 1:15 PM EST Office Visit [facility] [address] [place] [address] Kurtis Mendez, OD [address] [place] [address] documented as of this encounter Visit Diagnoses Diagnosis Dysphagia, unspecified type- Primary documented in this encounter Care Teams Roller Operator Relationship Specialty Start Date End Date Mendel Briones MD [address] [place] [address] PCP - General 10/05/20 documented as of this encounter
--- OUTSIDE RECORDS SUMMARY | 2025-01-02 11:05 | XMS_ITS | Encounter Summary ---
Author Organization Healthcare Address [address] [place] [address] Care Team Providers Care Membership Sales Manager Name Role Phone Mendel Briones MD Primary Care Provider [phone] Encounter Details Date Type Department Care Team (Late Contact Info) Description 09/12/2022 Community [facility] [address] [place] [address] Nish Grajeda, ARSON INVESTIGATOR [address] [facility] [place], [place] [id number] Allergy, subsequent encounter (Primary Dx) Social History [...] Description 07/05/2025 1:15 PM EST Office Visit [facility] [address] [facility] [address] Kurtis Mendez, OD [address] [place] [address] documented as of this encounter Visit Diagnoses Diagnosis Allergy, subsequent encounter- Primary documented in this encounter Care Teams Membership Sales Manager Relationship Specialty Start Date End Date Mendel Briones MD [address] [place] [address] PCP - General 10/05/20 documented as of this encounter
--- OUTSIDE RECORDS SUMMARY | 2025-01-02 11:05 | XMS_ITS | Clinical Summary ---
Author Organization [employer] ([place], [place], [place], [place]) Address [address] [place] [address] Care Team Providers Care Entertainment Centre Manager Name Role Phone Unavailable Primary Care [...]
--- OUTSIDE RECORDS SUMMARY | 2025-01-02 11:05 | XMS_ITS | Encounter Summary ---
Author Organization [employer] ([place], [place], [place], [place]) Address [address] [place] [address] Care Team Providers Care Farm Tractor Mechanic Name Role Phone Unavailable Primary Care Provider Unavailabl e Encounter Details Date Type Department Care Team (Late st Contact Info) Description 02/28/2021 Transcribed Document [facility] [place] Medicine [address] [place] [address] ProviderBonilla MD [address] [place], [place] [id number] Social History Tobacco Use Types Packs/Day Years [...] Bonilla ProviderMD - 02/28/2021 8:13 PM CDT [place] Suicide Severity Rating Scale (C-SSRS) Entered On: 02/28/2021 20:57 EDT Performed On: 02/28/2021 20:55 EDT by KIERA FRIEDMAN RN [place] Suicide Severity Rating Scale (C-SSRS) CSSRS Past [...]
--- OUTSIDE RECORDS SUMMARY | 2025-01-02 11:05 | XMS_ITS | Encounter Summary ---
Author Organization [employer] ([place], [place], [place], [place]) Address [address] [place] [address] Care Team Providers Care Labor Utilization Superintendent Name Role Phone Unavailable Primary Care Provider Unavailabl e Encounter Details Date Type Department Care Team (Late st Contact Info) Description 02/28/2021 Transcribed Document [facility] [place] [facility] [place] [address] ProviderBonilla MD [address] [place] [address] Social History Tobacco Use Types [...] Hollingsworth MD - 02/28/2021 9:56 PM CDT [place] [address] ISAIAS JENKINS :1970 Visit Time:02/28/2021 [...] clean your hands with an alcohol-based hand director public that contains at least 60% alcohol. 8. [...] Assistance with quitting is available by contacting 6-467-IQZLNOW. This is a free resource providing counseling, support, and referral. Or you may contact your personal physician. [place] Suicide Prevention Lifeline: The National Suicide Prevention [...] was given the opportunity to ask questions. Patient/Harness Builder Name: Patient/Harness Builder Signature: Relationship to Patient: Clinician/Hospital Harness Builder Signature: Please Provide a Telephone Number Where You Can Be Reached: Is it Permissible To Leave a Message? Date: Electronically signed by Interface, [facility] Conversion Stainless Steel Finisher Delia at 09/12/2022 4:16 PM CDT documented in this encounter Plan of Treatment Not on file documented as of this encounter Visit Diagnoses Not on filedocumented in this encounter
--- OUTSIDE RECORDS SUMMARY | 2025-01-02 11:05 | XMS_ITS | Encounter Summary ---
Author Organization [employer] ([place], [place], [place], [place]) Address [address] [place] [address] Care Team Providers Care Surface Supervisor Name Role Phone Unavailable Primary Care Provider Unavailabl e Encounter Details Date Type Department Care Team (Late st Contact Info) Description 02/28/2021 Transcribed Document [facility] [place] [address] [place] [address] ProviderBonilla MD [address] [place], [place] [id number] Social History Tobacco Use Types Packs/Day Years [...]
--- OUTSIDE RECORDS SUMMARY | 2025-01-02 11:05 | XMS_ITS | Encounter Summary ---
Author Organization [employer] ([place], [place], [place], [place]) Address [address] [place] [address] Care Team Providers Care Social And Human Services Assistant Name Role Phone Unavailable Primary Care Provider Unavailabl e Encounter Details Date Type Department Care Team (Late st Contact Info) Description 02/28/2021 Transcribed Document [facility] [place] [facility] [place] [address] ProviderBonilla MD [address] [place] [address] Social History Tobacco Use Types [...] EDT Height Source Stated Height Entry Format [place] Height/Length, UKRAINIAN (ft) 5 ft Height/Length UKRAINIAN 9 Inch CLINICALHEIGHT 175.26 cm [place] Body Weight 69.73 kg Weight Source, ED Critical estimated dosing weight Weight Entry Format [place] Weight Micronesian lb 189 lb CLINICALWEIGHT 85.91 kg Body [...] Triage: ED C-SSRS: ED Clinical Reconciliation: ED automatic grinder operator: Deleted COVID-19: . Impression and Plan Diagnosis COVID-19 - Discharge, Medical Plan Condition: Improved, Stable. Disposition: Discharged Admit/Transfer/Discharge: Discharge (Order): Start: 02/28/2021 21:45 EDT, Discharge to: Home. Prescriptions: Prescription Selvage Machine Operator Pharmacy: Medrol Dosepak 4 mg oral tablet (Prescribe): 1 Packet, Oral, Daily, for 6 Day(s), as directed on package labeling, 21 Tab, 0 Refill(s). Patient was given the following educational materials: 10 Things You Can Do to Manage Your COVID-19 Symptoms at Home - [facility] (11/23/2019). Follow up with: ; Follow up [...]
--- OUTSIDE RECORDS SUMMARY | 2025-01-02 11:05 | XMS_ITS | Encounter Summary ---
Author Organization [employer] ([place], [place], [place], [place]) Address [address] [place] [address] Care Team Providers Care Aircraft Powerplant Repairer Name Role Phone Unavailable Primary Care Provider Unavailabl e Encounter Details Date Type Department Care Team (Late st Contact Info) Description 02/28/2021 Transcribed Document [facility] [place] [facility] [place] [address] ProviderBonilla MD [address] [place], [place] [id number] Social History Tobacco Use Types Packs/Day Years [...] ProviderMD - 02/28/2021 8:13 PM CDT ED Assessment [...] Communication Barrier : None Primary Language : Japanese Any Spiritual/Cultural Needs or Requests : No [...]
--- OUTSIDE RECORDS SUMMARY | 2025-01-02 11:05 | XMS_ITS | Referral Summary ---
Author Organization [employer] ([place], [place], [place], [place]) Address [address] [place] [address] Care Team Providers Care Lumber Puller Name Role Phone Unavailable Primary Care Provider [...]
== END 2024-12-30 23:59 | disposition home or self-care (01) ==
LOC: LAB.DROPOF 01-02 10:55
PROVIDERS: PCP Internal Medicine; Visit Provider Internal Medicine
DX: E78.5 Hyperlipidemia, unspecified (principal); R61 Generalized hyperhidrosis; Z11.4 Encounter for screening for human immunodeficiency virus [HIV]; Z11.59 Encounter for screening for other viral diseases
CPT/HCPCS: 80061; 83036; 84439; 84443; 86803; 87389

== ENCOUNTER 2025-04-28 15:03 | Outpatient (CLI) | payer BC, SELFPAY | END 2025-04-28 23:59 | disposition home or self-care (01) | LOC: LAB.DROPOF 04-30 15:04 | PROVIDERS: PCP Internal Medicine; Visit Provider Internal Medicine | DX: J02.9 Acute pharyngitis, unspecified (principal) | CPT/HCPCS: 87070 ==

== ENCOUNTER 2025-05-09 12:32 | Outpatient (CLI) | payer BC, SELFPAY ==
--- OUTSIDE RECORDS SUMMARY | 2025-05-09 12:34 | XMS_ITS | Encounter Summary ---
Author Organization [employer] ([place], [place], [place], [place], [place]) Address [address] [place] [address] Care Team Providers Care Control Supervisor Name Role Phone Unavailable Primary Care Provider Unavailabl e Encounter Details Date Type Department Care Team (Late st Contact Info) Description 02/28/2021 Transcribed Document [facility] [place] [facility] [place] [address] ProviderBonilla MD [address] [place] [address] Social History Tobacco Use Types [...] Hollingsworth MD - 02/28/2021 9:[address] [facility] [place] [address] ISAIAS JENKINS :1970 Visit Time:02/28/2021 Your Visit Summary Your Care Team Primary Provider: HENRIETTA CUNNIGNHAM PA-C Secondary Provider: Your Diagnosis Congestion COVID-19 [...] clean your hands with an alcohol-based hand advance seal delivery system maintainer that contains at least 60% alcohol. 8. [...] Assistance with quitting is available by contacting 3-320-PKCLNOW. This is a free resource providing counseling, support, and referral. Or you may contact your personal physician. [place] Suicide Prevention Lifeline: The National Suicide Prevention [...] was given the opportunity to ask questions. Patient/Regional Transfer Liaison Name: Patient/Regional Transfer Liaison Signature: Relationship to Patient: Clinician/Hospital Regional Transfer Liaison Signature: Please Provide a Telephone Number Where You Can Be Reached: Is it Permissible To Leave a Message? Date: Electronically signed by Interface, [facility] Conversion Foreign Languages Professor Delia at 09/12/2022 4:16 PM CDT documented in this encounter Plan of Treatment Not on file documented as of this encounter Visit Diagnoses Not on filedocumented in this encounter
--- OUTSIDE RECORDS SUMMARY | 2025-05-09 12:34 | XMS_ITS | Encounter Summary ---
Author Organization [employer] ([place], [place], [place], [place], [place]) Address [address] [place] [address] Care Team Providers Care Lapel Stitcher Name Role Phone Unavailable Primary Care Provider Unavailabl e Encounter Details Date Type Department Care Team (Late st Contact Info) Description 02/28/2021 Transcribed Document [facility] [place] [facility] [address] ProviderBonilla MD [address] [place], [place] [id number] Social History Tobacco Use Types Packs/Day Years [...] EDT Height Source Stated Height Entry Format [place] Height/Length, GREENLANDIC (ft) 5 ft Height/Length GREENLAND[place] 9 Inch CLINICALHEIGHT 175.26 cm [place] Body Weight 69.73 kg Weight Source, ED Critical estimated dosing weight Weight Entry Format [place] Weight Zambian lb 189 lb CLINICALWEIGHT 85.91 kg Body [...] Triage: ED C-SSRS: ED Clinical Reconciliation: ED process improvement manager: Deleted COVID-19: . Impression and Plan Diagnosis COVID-19 - Discharge, Medical Plan Condition: Improved, Stable. Disposition: Discharged Admit/Transfer/Discharge: Discharge (Order): Start: 02/28/2021 21:45 EDT, Discharge to: Home. Prescriptions: Prescription Paraprofessional Aide Pharmacy: Medrol Dosepak 4 mg oral tablet (Prescribe): 1 Packet, Oral, Daily, for 6 Day(s), as directed on package labeling, 21 Tab, 0 Refill(s). Patient was given the following educational materials: 10 Things You Can Do to Manage Your COVID-19 Symptoms at Home - [facility] (11/23/2019). Follow up with: ; Follow [...]
--- OUTSIDE RECORDS SUMMARY | 2025-05-09 12:34 | XMS_ITS | Clinical Summary ---
Author Organization Healthcare Address [address] [place] [address] Care Team Providers Care Piano Technician Name Role Phone Mendel Briones MD Primary Care Provider [phone] Allergies No known active allergies Medications atorvastatin (Lipitor) 20 MG tablet Take 1 tablet (20 mg) by mouth 1 (one) time each day. 3 Active chlorthalidone (Hygroton) 25 MG tablet Take 1 tablet (25 mg) by mouth 1 (one) time each day. 3 Active Vitamin D3 1.25 MG (54613 UT) capsule TAKE ONE CAPSULE BY MOUTH [...] Encounters Date Type Department Care Team Description 02/15/2025 Refill [facility] [address] [place] [address] Indira Vargas APRN, DNP Gastro-esophageal reflux disease without esophagitis from Last 3 Months Immunizations Immunization Administration [...] Description 07/05/2025 1:15 PM EST Office Visit [facility] [address] [place] [address] Kurtis Mendez, OD [address] [address] Health Maintenance Due Date Last Done Comments [facility]-Depression Screening 1970 [facility]-HIV Screening 1970 [facility]-Hepatitis C Screening 1970 [facility]-Infant/Child/Adol SDOH Screenings 1970 [facility]- SDOH Screenings 11/08/1989 [...] - 19+ 3-dose series) 01/30/2022 09/04/2021, 07/30/2021 [id number] Vaccine (4 - 2024- season) 2025 01/16/2022, 07/08/2021, 03/30/2021 [facility]-Influenza Vaccine (#1) 01/23/202503/10, 03/21/2014 HPV Vaccines (No Doses Required) Completed [facility]-HIB Vaccines Aged Out No longer e [...] to complete this topic Insurance Care Teams Piano Technician Relationship Specialty Start Date End Date Mendel Briones MD [address] [place] [address] PCP - General 10/05/20
--- OUTSIDE RECORDS SUMMARY | 2025-05-09 12:34 | XMS_ITS | Encounter Summary ---
Author Organization Healthcare Address [address] [place] [address] Care Team Providers Care Supervisor Sample Name Role Phone Mendel Briones MD Primary Care Provider [phone] Encounter Details Date Type Department Care Team (Late Contact Info) Description 09/12/2022 Community [facility] [address] [place] [address] Nish Grajeda, RECOVERY ASSISTANT [address] [facility] [place], [place] [id number] Allergy, subsequent encounter (Primary Dx) Social History [...] Description 07/05/2025 1:15 PM EST Office Visit [facility] [address] [place] [address] Kurtis Mendez, OD [address] [place] [address] documented as of this encounter Visit Diagnoses Diagnosis Allergy, subsequent encounter- Primary documented in this encounter Care Teams Supervisor Sample Relationship Specialty Start Date End Date Mendel Briones MD [address] [place] [address] PCP - General 10/05/20 documented as of this encounter
--- OUTSIDE RECORDS SUMMARY | 2025-05-09 12:34 | XMS_ITS | Encounter Summary ---
Author Organization [employer] ([place], [place], [place], [place], [place]) Address [address] [place] [address] Care Team Providers Care Agronomy Specialist Name Role Phone Unavailable Primary Care Provider Unavailabl e Encounter Details Date Type Department Care Team (Late st Contact Info) Description 02/28/2021 Transcribed Document [facility] [place] [facility] [place] [address] ProviderBonilla MD [address] [place] [address] Social History Tobacco Use Types Packs/Day Years Used Date Smoking Tobacco: Never Assessed Sex and Gender Information Value Date Recorded Sex Assigned at Male 11/19/2021 8:00 PM CDT Legal Sex Male 8:00 PM CDT Gender Identity Male 11/19/2021 8:00 PM CDT Sexual Orientation Not on file documented as of this encounter Miscellaneous Notes * [employer] Conversion Note - Bonilla ProviderMD - 02/28/2021 10:02 PM CDT ED Discharge [...]
--- OUTSIDE RECORDS SUMMARY | 2025-05-09 12:34 | XMS_ITS | Encounter Summary ---
Author Organization [employer] ([place], [place], [place], [place], [place]) Address [address] [place] [address] Care Team Providers Care Business Process Representative Name Role Phone Unavailable Primary Care Provider Unavailabl e Encounter Details Date Type Department Care Team (Late st Contact Info) Description 02/28/2021 Transcribed Document [facility] [place] Medicine [address] [place] [address] ProviderBonilla MD [address] [place] [address] Social History Tobacco Use Types Packs/Day Years Used Date Smoking Tobacco: Never Assessed Sex and Gender Information Value Date Recorded Sex Assigned at Male 11/19/2021 8:00 PM CDT Legal Sex Male 8:00 PM CDT Gender Identity Male 11/19/2021 8:00 PM CDT Sexual Orientation Not on file documented as of this encounter Miscellaneous Notes * [employer] Conversion Note - Historical ProviderMD - 02/28/2021 8:13 PM CDT [place] Suicide Severity Rating Scale (C-SSRS) Entered On: 02/28/2021 20:57 EDT Performed On: 02/28/2021 20:55 EDT by KIERA FRIEDMAN RN [place] Suicide Severity Rating Scale (C-SSRS) CSSRS Past Month Wish to be : No CSSRS Past Month Suicidal Thoughts : No CSSRS Lifetime Suicide Behavior : No Suicide Severity Rating Score : 0 Suicide Severity Rating : No Additional Care Required at this time KIERA FRIEDMAN RN - 02/28/2021 20:55 EDT Electronically signed by Curly Keene Conversion Corporate Communications Intern [employer] at 09/12/2022 4:10 PM CDT documented in this encounter Plan of Treatment Not on file documented as of this encounter Visit Diagnoses Not on filedocumented in this encounter
--- OUTSIDE RECORDS SUMMARY | 2025-05-09 12:34 | XMS_ITS | Encounter Summary ---
Author Organization Healthcare Address [address] [place] [address] Care Team Providers Care Wood Pile Driver Operator Name Role Phone Mendel Briones MD Primary Care Provider [phone] Encounter Details Date Type Department Care Team (Late st Contact Info) Description 08/03/2021 Community [facility] Community Practice [address] [place] [address] Eva Peguero, DERECK [address] [place] [address] Primary testicular failure (Primary Dx) Social History [...] Description 07/05/2025 1:15 PM EST Office Visit [facility] [address] [facility] [place] [address] Kurtis Mendez, TOY [address] [place] [address] documented as of this encounter Visit Diagnoses Diagnosis Primary testicular failure- Primary Other testicular hypofunction documented in this encounter Care Teams Wood Pile Driver Operator Relationship Specialty Start Date End Date Mendel Briones MD [address] [place] [address] PCP - General 10/05/20 documented as of this encounter
--- OUTSIDE RECORDS SUMMARY | 2025-05-09 12:34 | XMS_ITS | Encounter Summary ---
Author Organization [employer] ([place], [place], [place], [place], [place]) Address [address] [place] [address] Care Team Providers Care Nut Sorter Name Role Phone Unavailable Primary Care Provider Unavailabl e Encounter Details Date Type Department Care Team (Late st Contact Info) Description 02/28/2021 Transcribed Document [facility] [place] [facility] [place] [address] ProviderBonilla MD [address] [place], [place] [id number] Social History Tobacco Use Types Packs/Day Years [...] : 3 - Urgent Tracking Group : [facility] ED KIERA FRIEDMAN RN - 02/28/2021 [...] PNED ; Probability: 0 ; Diagnosis Code: [id number] ED Height and Weight Height Source : Stated Height Entry Format : [place] Height, Feet : 5 ft(Converted to: 152 cm, 60 Inch) Height, Inches : 9 Inch(Converted to: 0 ft 9 Inch, 22.86 cm) Clinical Height : 175.26 cm Weight Source, ED : Critical estimated dosing weight Weight Entry Format : [place] Weight, Pounds : 189 lb Clinical Dosing Weight : 85.91 kg Body Surface Area (BSA) : 2.02 m2 Body Mass Index : 28 kg/m2 (HI) [place] Body Weight (IBW) : 69.73 kg KIERA FRIEDMAN RN - 02/28/2021 20:26 EDT Electronically signed by Curly Keene Conversion Environmental Science Professor [employer]ner at 09/12/2022 4:22 PM CDT documented in this encounter Plan of Treatment Not on file documented as of this encounter Visit Diagnoses Not on filedocumented in this encounter
--- OUTSIDE RECORDS SUMMARY | 2025-05-09 12:34 | XMS_ITS | Clinical Summary ---
Author Organization [employer] ([place], [place], [place], [place], [place]) Address [address] [place] [address] Care Team Providers Care Mobile Patrol Officer Name Role Phone Unavailable Primary Care Provider [...]
--- OUTSIDE RECORDS SUMMARY | 2025-05-09 12:34 | XMS_ITS | Encounter Summary ---
Author Organization [employer] ([place], [place], [place], [place], [place]) Address [address] [place] [address] Care Team Providers Care Home Connect Lpn Name Role Phone Unavailable Primary Care Provider Unavailabl e Encounter Details Date Type Department Care Team (Late st Contact Info) Description 02/28/2021 Transcribed Document [facility] [place] [facility] [address] ProviderBonilla MD [address] [place], [place] [address] Social History Tobacco Use Types Packs/Day Years Used Date Smoking Tobacco: Never Assessed Sex and Gender Information Value Date Recorded Sex Assigned at Male 11/19/2021 8:00 PM CDT Legal Sex Male 8:00 PM CDT Gender Identity Male 11/19/2021 8:00 PM CDT Sexual Orientation Not on file documented as of this encounter Miscellaneous Notes * [employer] Conversion Note - Historical ProviderMD - 02/28/2021 9:44 PM CDT Electronically signed by [facility] Conversion Asphalt Roller Operator Delia at 09/12/2022 4:28 PM CDT documented in this encounter Plan of Treatment Not on file documented as of this encounter Visit Diagnoses Not on filedocumented in this encounter
--- OUTSIDE RECORDS SUMMARY | 2025-05-09 12:34 | XMS_ITS | Encounter Summary ---
Author Organization [facility] Address [address] [place] [address] Care Team Providers Care Photoengraver Name Role Phone Mendel Briones MD Primary Care Provider [phone] Reason for Referral * Consultation (Routine) - Closed Specialty Diagnoses / Procedures Referred By Contmika chaudhry Referred To Contact Ophthalmology Diagnoses Other glaucoma of both eyes Kimo Dixon MD [address] [facility] [address] [place] [address] Phone: tel: fax: [facility] [address] [place] [address] Phone: tel: fax: Referral ID Status Reason Start Date Expiration Date V isits Requested Visits Authorized [id number] Closed Specialty Services Required 02/23/2023 08/24/2024 1 1 Encounter Details Date Type Department Care Team (Late st Contact Info) Description 02/23/2023 Community Orders Community Practice [address] [place] [address] Kimo Dixon MD [address] [place], [place] [id number] Fatty liver (Primary Dx); Other glaucoma of [...] 07/05/2025 1:15 PM EST Office Visit [facility] [address] [address] Kurtis Mendez, OD [address] [address] Scheduled Referrals Name Type Priority Associated Diagnoses Order Schedule Ambulatory Referral to Ophthalmology Outpatient Referral Routine Other glaucoma of both eyes Expected: 02/23/2023 (Approximate), Expires: 08/24/2024 documented as of this encounter Visit Diagnoses Diagnosis Fatty liver- Primary Other chronic nonalcoholic liver disease Other glaucoma of both eyes documented in this encounter Care Teams Photoengraver Relationship Specialty Start Date End Date Mendel Briones MD [address] [place] [address] PCP - General 10/05/20 documented as of this encounter
--- OUTSIDE RECORDS SUMMARY | 2025-05-09 12:34 | XMS_ITS | Encounter Summary ---
Author Organization [employer] ([place], [place], [place], [place], [place]) Address [address] [place] [address] Care Team Providers Care Roll Handler Name Role Phone Unavailable Primary Care Provider Unavailabl e Encounter Details Date Type Department Care Team (Late st Contact Info) Description 02/28/2021 Transcribed Document [facility] [place] Family Medicine [facility] [place] [address] ProviderBonilla MD [address] [place] [address] Social History Tobacco Use Types Packs/Day Years [...]
--- OUTSIDE RECORDS SUMMARY | 2025-05-09 12:34 | XMS_ITS | Referral Summary ---
Author Organization [facility] ([place], [place], [place], [place], [place]) Address [address] [place] [address] Care Team Providers Care Bug Trimmer Name Role Phone Unavailable Primary Care Provider [...]
--- OUTSIDE RECORDS SUMMARY | 2025-05-09 12:34 | XMS_ITS | Encounter Summary ---
Author Organization [facility] Address [address] [place] [address] Care Team Providers Care Condominium Property Manager Name Role Phone Mendel Briones MD Primary Care Provider [phone] Encounter Details Date Type Department Care Team (Late st Contact Info) Description 01/22/2022 Community [facility] [address] [place] [address] Elza Pati, SECURITY CONTROLS ASSESSOR [id number] Dysphagia, unspecified type (Primary Dx) Social History [...] 1:15 PM EST Office Visit [facility] [address] [place] [address] Kurtis Mendez, OD [address] [address] documented as of this encounter Visit Diagnoses Diagnosis Dysphagia, unspecified type- Primary documented in this encounter Care Teams Condominium Property Manager Relationship Specialty Start Date End Date Mendel Briones MD [address] [place] [address] PCP - General 10/05/20 documented as of this encounter
--- OUTSIDE RECORDS SUMMARY | 2025-05-09 12:34 | XMS_ITS | Encounter Summary ---
Author Organization [facility] ([place], [place], [place], [place], [place]) Address [address] [place] [address] Care Team Providers Care Mainspring Reverse Winder Name Role Phone Unavailable Primary Care Provider Unavailabl e Encounter Details Date Type Department Care Team (Late st Contact Info) Description 02/28/2021 Transcribed Document [facility] [place] Family Medicine [facility] [place] [address] ProviderBonilla MD [address] [place] [id number] Social History Tobacco Use Types Packs/Day Years [...] Communication Barrier : None Primary Language : Welsh Any Spiritual/Cultural Needs or Requests : No [...] and smell since x 1 wk [KIERA FRIEMDAN RN - 02/28/2021 20:55 EDT] ) KIERA [...]
[2025-05-09 14:12] LABS: Free T4 (Free Thyroxine) 1.09 ng/dl (0.78-2.19)
[2025-05-09 14:28] LABS: Thyroid Stimulating Hormone < 0.02 uIU/mL (0.465-4.68)
[2025-05-14 07:07] LABS: Testosterone, Total, LC/MS 223 ng/dL (.)
== END 2025-05-09 23:59 | disposition home or self-care (01) ==
LOC: LAB 12:33
PROVIDERS: PCP Internal Medicine; Visit Provider Internal Medicine
DX: E03.9 Hypothyroidism, unspecified (principal); E29.1 Testicular hypofunction
CPT/HCPCS: 36415; 84403; 84439; 84443